=== PATIENT | female | born 1940 | race Caucasian/White ===

== ENCOUNTER 2019-06-11 12:30 | Inpatient (IN) | payer MEDICARE, MEDICAID ==
[~2019-06-11] VITALS: Ht 165.1 cm; Wt 89.1 kg
[~2019-06-11 12:30] MED LIST: ALPR0.5T PO; ASPI-630 PO; BENZ-8 PO; BENZ1LOZ48 MM; BISA5TAB4 PO; BUPR300T3 PO; CALC400T5 PO; CHLO5CAP2 PO; DICL100G18 TP; DULO30CA2 PO; ESOM40CA PO; FLUT1DIS IH; FURO-69 PO; GUAI100L12 PO; HYDR-2769 PO; IPRA3AMP23 IH; LAMO200T3 PO; MAGN296S9 PO; MOME45CR2 TP; NICOTINE PATCH1 EAC3 TD; NYST1POW2 TP; ORPH-16 PO; PEG15DRO2 OP; POLY17PO5 PO; POTA10TA31 PO; PROM25TA10 PO; QUET200T4 PO; QUET300T5 PO; SENN-80 PO; SIMV10TA3 PO
[2019-06-11 13:18] LABS: BASO % 0 % (0-3); EOS # 0.1 x10^3/uL (0.0-0.7); EOS % 1 % (0-3); HEMATOCRIT 34.1 % (36.0-47.0); HEMOGLOBIN 11.1 g/dL (12.0-15.5); LYMPH # 1.6 x10^3/uL (1.0-4.8); LYMPH % 12 % (24-48); MEAN CORPUSCULAR HEMOGLOBIN 30 pg (25-35); MEAN CORPUSCULAR HGB CONC 33 g/dL (31-37); MEAN CORPUSCULAR VOLUME 92 fL (79-100); MONO # 0.7 x10^3/uL (0.0-1.1); MONO % 5 % (0-9); NEUT # 10.7 x10^3uL (1.8-7.7); NEUT % 82 % (31-73); PLATELET COUNT 278 x10^3/uL (140-400); RED BLOOD COUNT 3.69 x10^6/uL (3.50-5.40); WHITE BLOOD COUNT 13.1 x10^3/uL (4.0-11.0)
[2019-06-11 13:30] LABS: ALBUMIN 3.3 g/dL (3.4-5.0); CALCIUM 8.7 mg/dL (8.5-10.1); CREATININE 0.8 mg/dL (0.6-1.0); GFR 69.6; MAGNESIUM 1.7 mg/dL (1.8-2.4); POTASSIUM 3.9 mmol/L (3.5-5.1); TOTAL BILIRUBIN 0.2 mg/dL (0.2-1.0); TOTAL PROTEIN 6.6 g/dL (6.4-8.2)
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
--- NOTE | 2019-06-11 14:47 | EKG ---
[address] [address] Test Date: 2019-06-11 Test Time: 12:53:36 Pat Name: TRACI HURTADO Department: Room: Gender: F Registered Client Associate: ANDREA : 1940 Requested By: LIV DANGELO Order Number: [id number] Reading MD: Teddy Archer MD Measurements Intervals Gravelly Rate: 61 P: 12 ME: 180 QRS: -14 QRSD: 92 T: 41 QT: 434 QTc: 443 Interpretive Statements SINUS RHYTHM Electronically Signed On 06-18-2019 16:32:09 CDT by Teddy Archer MD
[2019-06-11 16:03] LABS: BACTERIA,URINE FEW /HPF (0-FEW); BILIRUBIN,URINE NEG (NEG); CLARITY,URINE HAZY; COLOR,URINE YELLOW; GLUCOSE,URINE NEG (NEG); NITRITE,URINE NEG (NEG); RBC,URINE 0 /HPF (0-2); SQUAMOUS EPITHELIAL CELL,UR FEW /LPF; UROBILINOGEN,URINE 0.2 mg/dL (0.2 mg/dL)
[2019-06-11] MEDS ORDERED: GLYCERIN OP SCH (16:45)
[2019-06-11] MEDS ORDERED: POLYETHYLENE GLYCOL 3350 17 GM PACKET. PO SCH (16:45)
[2019-06-11] MEDS ORDERED: HYPROMELLOSE OP SCH (16:45)
[2019-06-11] MEDS ORDERED: NYSTATIN TP SCH (16:45)
[2019-06-11] MEDS ORDERED: IPRATRPIUM/ALBUTEROL 0.5/2.5MG 3 ML NEBU. IH SCH ×2 (16:45→17:00)
[2019-06-11] MEDS ORDERED: guaiFENesin 300 MG/15 ML LIQUID PO SCH (16:45)
[2019-06-11] MEDS ORDERED: PEG OP SCH (16:45)
[2019-06-11] MEDS ORDERED: CALCIUM CARBONATE PO SCH (16:45)
[2019-06-11] MEDS ORDERED: BENZOCAINE/MENTHOL LOZNGE 18'S BOX. MM SCH (16:45)
[2019-06-11] MEDS ORDERED: SENNOSIDES 8.6 MG TABLET PO SCH (16:45)
[2019-06-11] MEDS ORDERED: LOSA25TA11 PO (17:09)
[2019-06-11] MEDS ORDERED: FLUO20CA16 PO (17:09)
[2019-06-11] MEDS ORDERED: UMEC62.5 IH (17:09)
[2019-06-11] MEDS ORDERED: FAMO-63 PO (17:09)
[2019-06-11] MEDS ORDERED: LORA0.5T PO (17:09)
[2019-06-11] MEDS ORDERED: MIRT15TA3 PO (17:09)
[2019-06-11] MEDS ORDERED: MULT-460 PO (17:09)
[2019-06-11] MEDS ORDERED: ONDA4TAB7 PO (17:09)
[2019-06-11] MEDS ORDERED: MELO7.5T29 PO (17:09)
[2019-06-11] MEDS ORDERED: CALC200T3 PO (17:09)
[2019-06-11] MEDS ORDERED: TRAZ-86 PO (17:09)
[2019-06-11] MEDS ORDERED: METO10TA81 PO (17:09)
[2019-06-11] MEDS ORDERED: MELA3TAB56 PO (17:09)
[2019-06-11] MEDS ORDERED: ACET325T9 PO (17:09)
[2019-06-11] MEDS ORDERED: CALCIUM CARBONATE 500 MG TAB.CHEW PO PRN ×3 (17:15→18:00)
[2019-06-11] MEDS ORDERED: ACETAMINOPHEN 325 MG TABLET PO PRN ×2 (17:15→18:30)
[2019-06-11] MEDS ORDERED: HYDROcodone/APAP 10/325 1 TAB TABLET PO SCH (17:15)
[2019-06-11] MEDS ORDERED: BENZOCAINE/MENTHOL LOZNGE 18'S BOX. MM PRN (17:45)
[2019-06-11] MEDS ORDERED: guaiFENesin 300 MG/15 ML LIQUID PO PRN (17:45)
[2019-06-11] MEDS ORDERED: SENNOSIDES 8.6 MG TABLET PO PRN (17:45)
[2019-06-11] MEDS ORDERED: POLYETHYLENE GLYCOL 3350 17 GM PACKET. PO PRN (17:45)
[2019-06-11] MEDS ORDERED: NON FORMULARY ITEM (Ondansetron Hcl (Zofran) 1 TAB) PO SCH (18:00)
[2019-06-11 18:01] VITALS: BP 128/80
[2019-06-11] MEDS ORDERED: POLYVINYL ALCOHOL 1.4% OPHTH SOLUTION 15ML BOTTLE. OU PRN (18:15)
[2019-06-11] MEDS ORDERED: MAG HYDROX/AL HYDROX/SIMETH 30 ML ORAL.SUSP PO PRN (18:30)
[2019-06-11] MEDS ORDERED: METHYL SALICYLATE/MENTHOL TOPICAL OINTMENT 29GM TUBE. TP PRN (18:30)
[2019-06-11] MEDS ORDERED: MAGNESIUM HYDROXIDE 2,400 MG/30 ML ORAL.SUSP. PO PRN (18:30)
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
[2019-06-11] MEDS: traZODone 100 MG TABLET. PO SCH (20:44)
[2019-06-11] MEDS: MELATONIN 3 MG TABLET PO SCH (20:44)
[2019-06-11] MEDS: FAMOTIDINE 20 MG TABLET PO SCH (20:44)
[2019-06-11] MEDS: SIMVASTATIN 10 MG TABLET PO SCH (20:44)
[2019-06-11] MEDS: ONDANSETRON ODT 4 MG TAB.RAPDIS PO SCH (20:45)
[2019-06-11] MEDS: QUEtiapine 100 MG TABLET. PO SCH (20:45)
[2019-06-11] MEDS: MIRTAZAPINE 15 MG TABLET PO SCH (20:45)
[2019-06-11] MEDS: LORazepam 0.5 MG TABLET PO SCH (20:46)
[2019-06-11] MEDS ORDERED: NON FORMULARY ITEM (Quetiapine Fumarate (Seroquel) 300 MG) PO SCH (21:00)
[2019-06-11] MEDS ORDERED: traZODone 100 MG TABLET. PO SCH (21:00)
[2019-06-11] MEDS ORDERED: LORazepam 0.5 MG TABLET PO SCH (21:00)
[2019-06-11] MEDS ORDERED: FAMOTIDINE 20 MG TABLET PO SCH (21:00)
[2019-06-11] MEDS ORDERED: NON FORMULARY ITEM (Fluticasone/Salmeterol (Advair 100-50 Diskus) 1 EACH) IH SCH ×2 (21:00)
[2019-06-11] MEDS ORDERED: MIRTAZAPINE 15 MG TABLET PO SCH (21:00)
[2019-06-11] MEDS ORDERED: SIMVASTATIN 10 MG TABLET PO SCH (21:00)
[2019-06-11] MEDS ORDERED: NYSTATIN TOPICAL POWDER 15GM BOTTLE. TP PRN (21:00)
[2019-06-11] MEDS ORDERED: NON FORMULARY ITEM (Melatonin 2 TAB) PO SCH (21:00)
[2019-06-11] MEDS: POLYVINYL ALCOHOL/POVIDONE/PF OPHTH SOLUTION DROPERETTE. OU PRN (21:12)
[2019-06-11] MEDS: HYDROcodone/APAP 10/325 1 TAB TABLET PO PRN (21:12)
--- NOTE | 2019-06-11 21:53 | PDOC ---
Exam Note: Danis Note: Please also refer to the separate dictated note~for this date of service dictated separately. Discussed the patient with Nursing staff reviewed the chart.~Reviewed interim history and current functioning. Reviewed vital signs,~Labs/ Radiology~and current medications noted below. Continue current treatment with the changes noted in the dictated addendum note Assessment: Vital Signs/I&O: Vital Signs Date Time Temp Pulse Resp B/P (MAP) Pulse Ox O2 Delivery O2 Flow Rate FiO2 06/11/19 21:12 16 Room Air 06/11/19 18:01 97.8 63 128/80 (96) 95 Labs: Laboratory Tests Test 06/11/19 13:05 06/11/19 14:15 White Blood Count 13.1 x10^3/uL (4.0-11.0) H Red Blood Count 3.69 x10^6/uL (3.50-5.40) Hemoglobin 11.1 g/dL (12.0-15.5) L Hematocrit 34.1 % (36.0-47.0) L Mean Corpuscular Volume 92 fL (79-100) Mean Corpuscular Hemoglobin 30 pg (25-35) Mean Corpuscular Hemoglobin Concent 33 g/dL (31-37) Red Cell Distribution Width 13.0 % (11.5-14.5) Platelet Count 278 x10^3/uL (140-400) Neutrophils (%) (Auto) 82 % (31-73) H Lymphocytes (%) (Auto) 12 % (24-48) L Monocytes (%) (Auto) 5 % (0-9) Eosinophils (%) (Auto) 1 % (0-3) Basophils (%) (Auto) 0 % (0-3) Neutrophils # (Auto) 10.7 x10^3uL (1.8-7.7) H Lymphocytes # (Auto) 1.6 x10^3/uL (1.0-4.8) Monocytes # (Auto) 0.7 x10^3/uL (0.0-1.1) Eosinophils # (Auto) 0.1 x10^3/uL (0.0-0.7) Basophils # (Auto) 0.0 x10^3/uL (0.0-0.2) Sodium Level 128 mmol/L (136-145) L Potassium Level 3.9 mmol/L (3.5-5.1) Chloride Level 97 mmol/L (98-107) L Carbon Dioxide Level 26 mmol/L (21-32) Anion Gap 5 (6-14) L Blood Urea Nitrogen 9 mg/dL (7-20) Creatinine 0.8 mg/dL (0.6-1.0) Estimated GFR (Cockcroft-Gault) 69.6 BUN/Creatinine Ratio 11 (6-20) Glucose Level 110 mg/dL (70-99) H Calcium Level 8.7 mg/dL (8.5-10.1) Magnesium Level 1.7 mg/dL (1.8-2.4) L Total Bilirubin 0.2 mg/dL (0.2-1.0) Aspartate Amino Transferase (AST) 17 U/L (15-37) Alanine Aminotransferase (ALT) 17 U/L (14-59) Alkaline Phosphatase 86 U/L (46-116) Total Protein 6.6 g/dL (6.4-8.2) Albumin 3.3 g/dL (3.4-5.0) L Albumin/Globulin Ratio 1.0 (1.0-1.7) Urine Collection Type Unknown Urine Color Yellow Urine Clarity Hazy Urine pH 6.5 Urine Specific Arco <=1.005 Urine Protein Neg (NEG-TRACE) Urine Glucose (UA) Neg mg/dL (NEG) Urine Ketones (Stick) Neg mg/dL (NEG) Urine Blood Neg (NEG) Urine Nitrite Neg (NEG) Urine Bilirubin Neg (NEG) Urine Urobilinogen Dipstick 0.2 mg/dL (0.2 mg/dL) Urine Leukocyte Esterase Neg (NEG) Urine RBC 0 /HPF (0-2) Urine WBC 1-4 /HPF (0-4) Urine Squamous Epithelial Cells Few /LPF Urine Bacteria Few /HPF (0-FEW) Current Medications: Meds: Current Medications Medications (Trade) Dose Ordered Sig/Gladys Route PRN Reason Start Time Stop Time Status Last Admin Dose Admin Simvastatin (Zocor) 10 mg HS PO 06/11/19 21:00 06/11/19 20:48 Quetiapine Fumarate (SEROquel) 300 mg QHS PO 06/11/19 21:00 06/11/19 20:48 Famotidine (Pepcid) 20 mg BID PO 06/11/19 21:00 06/11/19 20:48 Acetaminophen/ Hydrocodone Bitart (Lortab 10/325) 1 tab PRN Q4HRS PRN PO PAIN 06/11/19 17:45 06/11/19 21:12 Lorazepam (Ativan) 0.25 mg BID PO 06/11/19 21:00 06/11/19 20:48 Mirtazapine (Remeron) 15 mg QHS PO 06/11/19 21:00 06/11/19 20:48 Trazodone HCl (Desyrel) 100 mg QHS PO 06/11/19 21:00 06/11/19 20:48 Melatonin 6 mg QHS PO 06/11/19 21:00 06/11/19 20:48 Ondansetron HCl (Zofran Odt) 4 mg Q6HRS PO 06/11/19 18:15 06/11/19 20:48 Artificial Tears (Refresh Classic) 1 drop PRN TID PRN OU DRY EYE 06/11/19 18:30 06/11/19 21:12 I have reviewed the current psychotropics carefully including drug interactions. Risk benefit ratio favors no change other than as noted in my dictated progress note. Diagnosis: Problems: (1) Borderline personality disorder LAURIE TORRES MD Jun 11, 2019 21:53
--- NOTE | 2019-06-11 22:19 | NUR ---
Pt discontinued treament. She stated it made her dizzy and sick to her stomach. Pt wants to use inhalers like she normally does.
[2019-06-11] MEDS: BUDESONIDE 0.5 MG/2 ML NEBU NEB SCH (23:39)
[2019-06-11] MEDS: IPRATRPIUM/ALBUTEROL 0.5/2.5MG 3 ML NEBU. IH SCH (23:39)
[2019-06-12] MEDS: IPRATRPIUM/ALBUTEROL 0.5/2.5MG 3 ML NEBU. IH SCH ×4 (05:57→20:04)
[2019-06-12 06:00] VITALS: BP 122/76
[2019-06-12] MEDS ORDERED: METOCLOPRAMIDE 10 MG TABLET PO SCH (07:30)
[2019-06-12] MEDS ORDERED: FLUoxetine HCL 20 MG CAPSULE PO SCH (08:00)
[2019-06-12] MEDS: METOCLOPRAMIDE 5 MG TABLET PO SCH ×3 (08:31→17:24)
[2019-06-12] MEDS: FAMOTIDINE 20 MG TABLET PO SCH ×2 (08:31→20:04)
[2019-06-12] MEDS: ONDANSETRON ODT 4 MG TAB.RAPDIS PO SCH ×4 (08:31→17:24)
[2019-06-12] MEDS: FLUoxetine HCL 20 MG CAPSULE PO SCH (08:32)
[2019-06-12] MEDS: FUROSEMIDE 20 MG TABLET PO SCH (08:32)
[2019-06-12] MEDS: LORazepam 0.5 MG TABLET PO SCH ×2 (08:33→20:12)
[2019-06-12] MEDS: LOSARTAN 25 MG TABLET. PO SCH (08:33)
[2019-06-12] MEDS: POTASSIUM CHLORIDE 10 MEQ TABLET.ER. PO SCH (08:34)
[2019-06-12] MEDS: MULTIVITAMIN with MINERAL TABLET. PO SCH (08:34)
[2019-06-12] MEDS: NICOTINE 14MG PATCH. TD SCH (08:34)
[2019-06-12] MEDS: MELOXICAM 7.5 MG TABLET PO SCH (08:34)
[2019-06-12] MEDS ORDERED: MELOXICAM 7.5 MG TABLET PO SCH (09:00)
[2019-06-12] MEDS ORDERED: LOSARTAN 25 MG TABLET. PO SCH (09:00)
[2019-06-12] MEDS ORDERED: POTASSIUM CHLORIDE 10 MEQ TABLET.ER. PO SCH (09:00)
[2019-06-12] MEDS ORDERED: FUROSEMIDE 20 MG TABLET PO SCH (09:00)
[2019-06-12] MEDS ORDERED: NON FORMULARY ITEM (Multivitamin With Minerals (Multiple Vitamin) 1 EACH) PO SCH (09:00)
[2019-06-12] MEDS ORDERED: NON FORMULARY ITEM (Umeclidinium Bromide (Incruse Ellipta) 62.5 MCG) IH SCH ×2 (09:00)
[2019-06-12] MEDS: BUDESONIDE 0.5 MG/2 ML NEBU NEB SCH ×2 (11:26→20:04)
--- NOTE | 2019-06-12 11:39 | NUR ---
Patient was in her room during rounding, took medications, allowed for morning assessment. Patient was sarcastic with during rounding, kept asking him to repeat his name and said that she felt he "rushed in and rushed out." No agitation noted, will continue to monitor.
[2019-06-12 13:33] LABS: THYROID STIM HORMONE (TSH) 0.997 uIU/mL (0.358-3.740)
[2019-06-12] MEDS: HYDROcodone/APAP 10/325 1 TAB TABLET PO PRN (15:00)
--- NOTE | 2019-06-12 15:08 | NUR ---
Patient was headed to group activities when she mentioned being in pain. Patient said that her lower back was "killing her". PRN Lortab given @1500. Patient is still in the dayroom. Will continue to monitor.
[2019-06-12 16:46] VITALS: BP 145/72
--- NOTE | 2019-06-12 19:20 | NUR ---
Patient has been provided with Practical Counseling for tobacco cessation. It included a face to face interaction and the following was discussed: Recognizing danger situations, Developing coping skills,Basic cessation information. Will follow for discharge needs and discharge planning.
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
[2019-06-12] MEDS: SIMVASTATIN 10 MG TABLET PO SCH (20:04)
[2019-06-12] MEDS: MELATONIN 3 MG TABLET PO SCH (20:04)
[2019-06-12] MEDS: MIRTAZAPINE 15 MG TABLET PO SCH (20:05)
[2019-06-12] MEDS: traZODone 100 MG TABLET. PO SCH (20:05)
[2019-06-12] MEDS: QUEtiapine 100 MG TABLET. PO SCH (20:05)
--- NOTE | 2019-06-12 21:58 | PDOC ---
Exam Note: Danis Note: Please also refer to the separate dictated note~for this date of service dictated separately.~Patient seen individually. Discussed the patient with Nursing staff reviewed the chart.~Reviewed interim history and current functioning. Reviewed vital signs,~Labs/ Radiology~and current medications noted below. Continue current treatment with the changes noted in the dictated addendum note Assessment: Vital Signs/I&O: Vital Signs Date Time Temp Pulse Resp B/P (MAP) Pulse Ox O2 Delivery O2 Flow Rate FiO2 06/12/19 20:07 95 Room Air 06/12/19 16:46 98.0 84 20 145/72 (96) I & O 06/11/19 06/11/19 06/12/19 15:00 23:00 07:00 Output Total 2 ml Balance -2 ml Current Medications: Meds: Current Medications Medications (Trade) Dose Ordered Sig/Gladys Route PRN Reason Start Time Stop Time Status Last Admin Dose Admin Furosemide (Lasix) 20 mg DAILY PO 06/12/19 09:00 06/12/19 08:34 Potassium Chloride (Klor-Con) 10 meq DAILY PO 06/12/19 09:00 06/12/19 08:34 Fluoxetine HCl (PROzac) 40 mg DAILYWBKFT PO 06/12/19 08:00 06/12/19 08:34 Losartan Potassium (Cozaar) 25 mg DAILY PO 06/12/19 09:00 06/12/19 08:34 Meloxicam (Mobic) 7.5 mg DAILY PO 06/12/19 09:00 06/12/19 08:34 Metoclopramide HCl (Reglan) 5 mg TIDAC PO 06/12/19 07:30 06/12/19 17:24 Multivitamins/ Calcium (Thera-M Plus) 1 tab DAILY PO 06/12/19 09:00 06/12/19 08:34 Nicotine (Nicoderm Cq 14mg) 1 patch DAILY TD 06/12/19 09:00 06/12/19 08:34 I have reviewed the current psychotropics carefully including drug interactions. Risk benefit ratio favors no change other than as noted in my dictated progress note. Diagnosis: Problems: (1) Borderline personality disorder (2) Bipolar affective, mixed, sev w/ psych (3) Impulse control disorder (4) Anxiety disorder LAURIE TORRES MD Jun 12, 2019 21:58
[2019-06-12 23:11] LABS: THYROXINE 4.7 ug/dL (4.5-12.0)
--- NOTE | 2019-06-12 23:45 | NUR ---
Pt sitting quietly in the day room at shift change. Pt calm, interactive, can be condescending and sarcastic at times and attention seeking. Pt often talks down on others. Pt cooperative with assessment and compliant with medications administered whole in applesauce.
[2019-06-13 00:06] LABS: HEMOGLOBIN A1C 5.4 % (4.8-5.6)
[2019-06-13] MEDS: ACETAMINOPHEN 325 MG TABLET PO PRN (00:27)
[2019-06-13] MEDS: ONDANSETRON ODT 4 MG TAB.RAPDIS PO SCH ×5 (00:27→23:22)
[2019-06-13] MEDS: HYDROcodone/APAP 10/325 1 TAB TABLET PO PRN ×2 (00:40→22:10)
--- NOTE | 2019-06-13 00:41 | NUR ---
PRN Lortab administered at this time for c/o LBP and CAMPBELL, pt rates pain 10/10. Pt also insisted that medications be administered whole in chocolate pudding despite being lactose intolerant.
[2019-06-13] MEDS: ALBUTEROL SULFATE 2.5 MG/3 ML NEBU. NEB PRN (05:05)
[2019-06-13] MEDS: IPRATRPIUM/ALBUTEROL 0.5/2.5MG 3 ML NEBU. IH SCH ×4 (05:06→21:27)
[2019-06-13 05:53] VITALS: BP 129/75
[2019-06-13] MEDS: METOCLOPRAMIDE 5 MG TABLET PO SCH ×3 (08:09→17:05)
[2019-06-13] MEDS: FAMOTIDINE 20 MG TABLET PO SCH ×2 (08:09→20:17)
[2019-06-13] MEDS: POTASSIUM CHLORIDE 10 MEQ TABLET.ER. PO SCH (08:10)
[2019-06-13] MEDS: FUROSEMIDE 20 MG TABLET PO SCH (08:10)
[2019-06-13] MEDS: MELOXICAM 7.5 MG TABLET PO SCH (08:10)
[2019-06-13] MEDS: MULTIVITAMIN with MINERAL TABLET. PO SCH (08:11)
[2019-06-13] MEDS: NICOTINE 14MG PATCH. TD SCH (08:11)
[2019-06-13] MEDS: FLUoxetine HCL 20 MG CAPSULE PO SCH (08:11)
[2019-06-13] MEDS: LOSARTAN 25 MG TABLET. PO SCH (08:11)
[2019-06-13] MEDS: LORazepam 0.5 MG TABLET PO SCH ×2 (08:16→20:19)
[2019-06-13] MEDS: BUDESONIDE 0.5 MG/2 ML NEBU NEB SCH ×2 (10:03→21:30)
[2019-06-13 10:47] LABS: BASO % 0 % (0-3); EOS # 0.1 x10^3/uL (0.0-0.7); EOS % 1 % (0-3); HEMATOCRIT 32.8 % (36.0-47.0); HEMOGLOBIN 10.9 g/dL (12.0-15.5); LYMPH # 1.6 x10^3/uL (1.0-4.8); LYMPH % 19 % (24-48); MEAN CORPUSCULAR HEMOGLOBIN 31 pg (25-35); MEAN CORPUSCULAR HGB CONC 33 g/dL (31-37); MEAN CORPUSCULAR VOLUME 92 fL (79-100); MONO # 0.7 x10^3/uL (0.0-1.1); MONO % 8 % (0-9); NEUT % 72 % (31-73); PLATELET COUNT 263 x10^3/uL (140-400); RED BLOOD COUNT 3.57 x10^6/uL (3.50-5.40); RED CELL DISTRIBUTION WIDTH 12.6 % (11.5-14.5); WHITE BLOOD COUNT 8.4 x10^3/uL (4.0-11.0)
--- NOTE | 2019-06-13 10:48 | NUR ---
Patient was in her room getting ready to lay down during assessment, took medications. Patient was calm, cooperative, thanked staff for their cares. Patient is still resting in bed, no agitation noted. Will continue to monitor.
[2019-06-13 10:53] LABS: ALBUMIN 3.3 g/dL (3.4-5.0); CALCIUM 9.4 mg/dL (8.5-10.1); CREATININE 0.9 mg/dL (0.6-1.0); GFR 60.7; TOTAL BILIRUBIN 0.3 mg/dL (0.2-1.0); TOTAL PROTEIN 6.7 g/dL (6.4-8.2)
[2019-06-13 15:55] VITALS: BP 145/80
[2019-06-13] MEDS: traZODone 100 MG TABLET. PO SCH (20:17)
[2019-06-13] MEDS: MELATONIN 3 MG TABLET PO SCH (20:17)
[2019-06-13] MEDS: QUEtiapine 100 MG TABLET. PO SCH (20:18)
[2019-06-13] MEDS: MIRTAZAPINE 15 MG TABLET PO SCH (20:18)
[2019-06-13] MEDS: SIMVASTATIN 10 MG TABLET PO SCH (20:18)
--- NOTE | 2019-06-13 22:52 | NUR ---
Nursing note: Assumed care of pt in her room. She is rude, sarcastic, and demanding. Nothing anyone does for her is satisfactory. We have explained several times why we do not have call lights here. She c/o a headache and was given PRN Lortab. She is now c/o of a stuffy nose. Will order saline spray. Pt is A&OX4. She had a shower and she cussed and berated staff the whole time.
--- NOTE | 2019-06-13 22:54 | PDOC ---
Exam Note: Danis Note: Please also refer to the separate dictated note~for this date of service dictated separately.~Patient seen individually. Discussed the patient with Nursing staff reviewed the chart.~Reviewed interim history and current functioning. Reviewed vital signs,~Labs/ Radiology~and current medications noted below. Continue current treatment with the changes noted in the dictated addendum note Assessment: Vital Signs/I&O: Vital Signs Date Time Temp Pulse Resp B/P (MAP) Pulse Ox O2 Delivery O2 Flow Rate FiO2 06/13/19 22:11 94 Room Air 06/13/19 15:55 98.3 67 22 145/80 (101) I & O 06/12/19 06/12/19 06/13/19 14:59 22:59 06:59 Intake Total 960 ml 840 ml Balance 960 ml 840 ml Labs: Laboratory Tests Test 06/13/19 10:29 White Blood Count 8.4 x10^3/uL (4.0-11.0) Red Blood Count 3.57 x10^6/uL (3.50-5.40) Hemoglobin 10.9 g/dL (12.0-15.5) L Hematocrit 32.8 % (36.0-47.0) L Mean Corpuscular Volume 92 fL (79-100) Mean Corpuscular Hemoglobin 31 pg (25-35) Mean Corpuscular Hemoglobin Concent 33 g/dL (31-37) Red Cell Distribution Width 12.6 % (11.5-14.5) Platelet Count 263 x10^3/uL (140-400) Neutrophils (%) (Auto) 72 % (31-73) Lymphocytes (%) (Auto) 19 % (24-48) L Monocytes (%) (Auto) 8 % (0-9) Eosinophils (%) (Auto) 1 % (0-3) Basophils (%) (Auto) 0 % (0-3) Neutrophils # (Auto) 6.0 x10^3uL (1.8-7.7) Lymphocytes # (Auto) 1.6 x10^3/uL (1.0-4.8) Monocytes # (Auto) 0.7 x10^3/uL (0.0-1.1) Eosinophils # (Auto) 0.1 x10^3/uL (0.0-0.7) Basophils # (Auto) 0.0 x10^3/uL (0.0-0.2) Sodium Level 136 mmol/L (136-145) Potassium Level 4.0 mmol/L (3.5-5.1) Chloride Level 99 mmol/L (98-107) Carbon Dioxide Level 28 mmol/L (21-32) Anion Gap 9 (6-14) Blood Urea Nitrogen 8 mg/dL (7-20) Creatinine 0.9 mg/dL (0.6-1.0) Estimated GFR (Cockcroft-Gault) 60.7 BUN/Creatinine Ratio 9 (6-20) Glucose Level 132 mg/dL (70-99) H Calcium Level 9.4 mg/dL (8.5-10.1) Total Bilirubin 0.3 mg/dL (0.2-1.0) Aspartate Amino Transferase (AST) 15 U/L (15-37) Alanine Aminotransferase (ALT) 15 U/L (14-59) Alkaline Phosphatase 81 U/L (46-116) Total Protein 6.7 g/dL (6.4-8.2) Albumin 3.3 g/dL (3.4-5.0) L Albumin/Globulin Ratio 1.0 (1.0-1.7) Current Medications: I have reviewed the current psychotropics carefully including drug interactions. Risk benefit ratio favors no change other than as noted in my dictated progress note. Diagnosis: Problems: (1) Borderline personality disorder (2) Anxiety disorder (3) Bipolar affective, mixed, sev w/ psych (4) Impulse control disorder LAURIE TORRES MD Jun 13, 2019 22:54
[2019-06-13] MEDS ORDERED: SODIUM CHL/ALOE VERA NASAL GEL 14.1GM TUBE. NS PRN (23:00)
--- NOTE | 2019-06-13 23:13 | NUR ---
This nurse assisted with pt's shower this evening. During the shower, pt was rude, condescending, sarcastic, and belligerent. Pt arguing with staff, calling staff bitches, stating that staff was "fat, stupid and ugly." Pt demanding to shower herself, but then berating staff because we weren't helping her. Pt attention seeking; as staff was helping pt exit the shower pt exaggeratedly attempted to place herself on the floor. Pt was stopped and proceeded to ambulate steadily up the wright.
[2019-06-13] MEDS ORDERED: SODIUM CHLORIDE 0.65% NASAL SPRAY 45ML BOTTLE. NS PRN (23:45)
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
[2019-06-14] MEDS: ONDANSETRON ODT 4 MG TAB.RAPDIS PO SCH ×4 (05:04→17:50)
[2019-06-14] MEDS: IPRATRPIUM/ALBUTEROL 0.5/2.5MG 3 ML NEBU. IH SCH ×4 (05:35→23:59)
[2019-06-14 06:14] VITALS: BP 152/88
[2019-06-14] MEDS: FLUoxetine HCL 20 MG CAPSULE PO SCH (07:45)
[2019-06-14] MEDS: FUROSEMIDE 20 MG TABLET PO SCH (07:45)
[2019-06-14] MEDS: LOSARTAN 25 MG TABLET. PO SCH (07:45)
[2019-06-14] MEDS: FAMOTIDINE 20 MG TABLET PO SCH ×2 (07:45→20:05)
[2019-06-14] MEDS: MELOXICAM 7.5 MG TABLET PO SCH (07:46)
[2019-06-14] MEDS: MULTIVITAMIN with MINERAL TABLET. PO SCH (07:46)
[2019-06-14] MEDS: LORazepam 0.5 MG TABLET PO SCH ×2 (07:47→20:07)
[2019-06-14] MEDS: METOCLOPRAMIDE 5 MG TABLET PO SCH ×3 (07:47→16:54)
[2019-06-14] MEDS: NICOTINE 14MG PATCH. TD SCH (07:49)
[2019-06-14] MEDS: POTASSIUM CHLORIDE 10 MEQ TABLET.ER. PO SCH (07:50)
[2019-06-14] MEDS: BUDESONIDE 0.5 MG/2 ML NEBU NEB SCH ×2 (10:06→23:59)
[2019-06-14] MEDS: HYDROcodone/APAP 10/325 1 TAB TABLET PO PRN ×2 (12:28→17:07)
--- NOTE | 2019-06-14 13:46 | NUR ---
Pt. has isolated to her room other than meal times. Slept soundly in a.m. with HOB elevated 30 degrees. Provided her a list of scheduled meds I had given her as requested. Requested Lortab at lunch for back, leg pain and headache. Rated at 9 on pain scale. Demanding and rude, instructed in meds and purposes of each.
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
[2019-06-14 15:52] VITALS: BP 149/69
--- NOTE | 2019-06-14 17:34 | PN ---
DATE: 06/13/2019 This note covers elements not covered in my initial note of 06/13. SUBJECTIVE: I met with the patient evening of 06/13 on two separate occasions as the patient wanted me back to ask further questions about her diagnosis treatment. Overall, per nursing staff, the patient slept 4-1/2 hours previous night. The patient remains quite grandiose, labile in her mood. REVIEW OF SYSTEMS: No CV, , pulmonary, eye, ENT system symptoms on review. Ambulates independently with walker. MENTAL STATUS EXAM: Oriented reasonably. Speech is coherent, rapid, loud at times. Abstraction fair, computation impaired, language function intact, attention span short. Mood and affect remain somewhat labile and grandiose. LABORATORY DATA: Reviewed. IMPRESSION: Bipolar 1 disorder, mixed versus manic with psychotic features; anxiety disorder, unspecified; impulse control disorder, unspecified. Rest unchanged. PLAN: Start Depakote ER 500 mg p.o. at bedtime. Check CBC, CMP, valproic acid level, ammonia level in 3 days. Continue rest of the psychotropics for now. Consider changing Seroquel to Risperdal if psychotic symptoms persist despite the above. May reduce the Prozac gradually since this at 40 mg could be worsening her wiley. LAURIE TORRES MD DR: STANLEY/sadie JOB#: [id number] / [id number]
[2019-06-14] MEDS: MELATONIN 3 MG TABLET PO SCH (20:04)
[2019-06-14] MEDS: SIMVASTATIN 10 MG TABLET PO SCH (20:04)
[2019-06-14] MEDS: QUEtiapine 100 MG TABLET. PO SCH (20:04)
[2019-06-14] MEDS: MIRTAZAPINE 15 MG TABLET PO SCH (20:04)
[2019-06-14] MEDS: DIVALPROEX ER 500 MG TAB.ER.24H PO SCH (20:07)
[2019-06-14] MEDS: traZODone 100 MG TABLET. PO SCH (20:08)
--- NOTE | 2019-06-14 21:10 | PDOC ---
Exam Note: Danis Note: Please also refer to the separate dictated note~for this date of service dictated separately.~Patient seen individually. Discussed the patient with Nursing staff reviewed the chart.~Reviewed interim history and current functioning. Reviewed vital signs,~Labs/ Radiology~and current medications noted below. Continue current treatment with the changes noted in the dictated addendum note Assessment: Vital Signs/I&O: Vital Signs Date Time Temp Pulse Resp B/P (MAP) Pulse Ox O2 Delivery O2 Flow Rate FiO2 06/14/19 17:07 16 Room Air 06/14/19 15:52 98.2 62 149/69 (95) 95 I & O 06/13/19 06/13/19 06/14/19 15:00 23:00 07:00 Intake Total 720 ml 240 ml 360 ml Balance 720 ml 240 ml 360 ml Current Medications: Meds: Current Medications Medications (Trade) Dose Ordered Sig/Gladys Route PRN Reason Start Time Stop Time Status Last Admin Dose Admin Trazodone HCl (Desyrel) 150 mg QHS PO 06/14/19 21:00 06/14/19 20:08 Divalproex Sodium (Depakote Er) 500 mg QHS PO 06/14/19 21:00 06/14/19 20:08 I have reviewed the current psychotropics carefully including drug interactions. Risk benefit ratio favors no change other than as noted in my dictated progress note. Diagnosis: Problems: (1) Impulse control disorder (2) Bipolar affective, mixed, sev w/ psych (3) Anxiety disorder (4) Morbid obesity (5) Borderline personality disorder LAURIE TORRES MD Jun 14, 2019 21:10
[2019-06-15] MEDS: ONDANSETRON ODT 4 MG TAB.RAPDIS PO SCH ×4 (00:19→17:10)
--- NOTE | 2019-06-15 02:41 | NUR ---
Patient very demanding about how she wants her medications. She wants them floated in pudding, but not stirred in, on top of the pudding. She then stated she "doesn't drink water with her meds, she drinks juice". Patient seems to be oriented to herself but was ignoring nurse and not answering orientation questions. She instead stared straight ahead, nurse verified with other staff and Dr. Sellers that patient was not deaf. Patient dismissive, rude and was acting superior to staff throughout the night. At 2315 patient came to nurses station stating she was still awake, and accusing this nurse of not giving her the correct HS medications. Nurse verified with patient what medications had been given. Patient then left the area, using her walker and stomped down the hallway to her room. Patient keeps door to room closed but when nurse asked about 15 minute checks later, it was reported that patient was sleeping. Jose L scheduled for midnight held as patient was sleeping at that time and did not appear nauseated.
[2019-06-15] MEDS: IPRATRPIUM/ALBUTEROL 0.5/2.5MG 3 ML NEBU. IH SCH ×4 (05:21→23:37)
[2019-06-15 05:53] VITALS: BP 150/69
[2019-06-15] MEDS: METOCLOPRAMIDE 5 MG TABLET PO SCH ×3 (07:53→17:11)
[2019-06-15] MEDS: FLUoxetine HCL 20 MG CAPSULE PO SCH (07:53)
[2019-06-15] MEDS: FUROSEMIDE 20 MG TABLET PO SCH (07:54)
[2019-06-15] MEDS: MELOXICAM 7.5 MG TABLET PO SCH (07:54)
[2019-06-15] MEDS: POTASSIUM CHLORIDE 10 MEQ TABLET.ER. PO SCH (07:54)
[2019-06-15] MEDS: LOSARTAN 25 MG TABLET. PO SCH (07:54)
[2019-06-15] MEDS: FAMOTIDINE 20 MG TABLET PO SCH ×2 (07:55→21:01)
[2019-06-15] MEDS: NICOTINE 14MG PATCH. TD SCH (07:55)
[2019-06-15] MEDS: MULTIVITAMIN with MINERAL TABLET. PO SCH (07:55)
[2019-06-15] MEDS: ALPRAZolam 0.25 MG TABLET PO SCH ×2 (07:58→20:59)
--- NOTE | 2019-06-15 10:50 | NUR ---
Patient was in the dining room during morning rounding, took medications floated in pudding, allowed for morning assessment. Patient was polite, thanked staff, also used please and thank you. No agitation noted, patient denies pain. Will continue to monitor.
[2019-06-15] MEDS: BUDESONIDE 0.5 MG/2 ML NEBU NEB SCH ×2 (11:33→23:37)
[2019-06-15 16:37] VITALS: BP 181/79
--- NOTE | 2019-06-15 19:29 | PDOC ---
Exam Note: Danis Note: Please also refer to the separate dictated note~for this date of service dictated separately.~Patient seen individually. Discussed the patient with Nursing staff reviewed the chart.~Reviewed interim history and current functioning. Reviewed vital signs,~Labs/ Radiology~and current medications noted below. Continue current treatment with the changes noted in the dictated addendum note Assessment: Vital Signs/I&O: Vital Signs Date Time Temp Pulse Resp B/P (MAP) Pulse Ox O2 Delivery O2 Flow Rate FiO2 06/15/19 16:41 95 Room Air 06/15/19 16:37 98.1 65 16 181/79 (113) I & O 06/14/19 06/14/19 06/15/19 15:00 23:00 07:00 Intake Total 560 ml 240 ml 360 ml Balance 560 ml 240 ml 360 ml Current Medications: Meds: Current Medications Medications (Trade) Dose Ordered Sig/Gladys Route PRN Reason Start Time Stop Time Status Last Admin Dose Admin Trazodone HCl (Desyrel) 150 mg QHS PO 06/14/19 21:00 06/14/19 20:08 Divalproex Sodium (Depakote Er) 500 mg QHS PO 06/14/19 21:00 06/14/19 20:08 Alprazolam (Xanax) 0.25 mg BID PO 06/15/19 09:00 06/15/19 07:59 Ondansetron HCl (Zofran Odt) 4 mg TIDAFTMEAL PO 06/15/19 09:00 06/15/19 17:11 I have reviewed the current psychotropics carefully including drug interactions. Risk benefit ratio favors no change other than as noted in my dictated progress note. Diagnosis: Problems: (1) Impulse control disorder (2) Bipolar affective, mixed, sev w/ psych (3) Anxiety disorder (4) Borderline personality disorder LAURIE TORRES MD Jun 15, 2019 19:29
[2019-06-15] MEDS: DIVALPROEX ER 500 MG TAB.ER.24H PO SCH (20:59)
[2019-06-15] MEDS: MIRTAZAPINE 15 MG TABLET PO SCH (21:00)
[2019-06-15] MEDS: SIMVASTATIN 10 MG TABLET PO SCH (21:00)
[2019-06-15] MEDS: QUEtiapine 100 MG TABLET. PO SCH (21:00)
[2019-06-15] MEDS: traZODone 100 MG TABLET. PO SCH (21:00)
[2019-06-15] MEDS: MELATONIN 3 MG TABLET PO SCH (21:01)
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
[2019-06-15] MEDS: traZODone 150 MG TABLET. PO PRN (23:53)
[2019-06-15] MEDS: HYDROcodone/APAP 10/325 1 TAB TABLET PO PRN (23:54)
[2019-06-16] MEDS: IPRATRPIUM/ALBUTEROL 0.5/2.5MG 3 ML NEBU. IH SCH ×4 (05:54→22:09)
[2019-06-16 05:59] VITALS: BP 134/60
[2019-06-16] MEDS: FLUoxetine HCL 20 MG CAPSULE PO SCH (08:26)
[2019-06-16] MEDS: METOCLOPRAMIDE 5 MG TABLET PO SCH ×3 (08:26→17:18)
[2019-06-16] MEDS: LOSARTAN 25 MG TABLET. PO SCH (08:28)
[2019-06-16] MEDS: FAMOTIDINE 20 MG TABLET PO SCH ×2 (08:29→19:25)
[2019-06-16] MEDS: POTASSIUM CHLORIDE 10 MEQ TABLET.ER. PO SCH (08:29)
[2019-06-16] MEDS: FUROSEMIDE 20 MG TABLET PO SCH (08:29)
[2019-06-16] MEDS: NICOTINE 14MG PATCH. TD SCH (08:29)
[2019-06-16] MEDS: ONDANSETRON ODT 4 MG TAB.RAPDIS PO SCH ×3 (08:29→17:17)
[2019-06-16] MEDS: MULTIVITAMIN with MINERAL TABLET. PO SCH (08:29)
[2019-06-16] MEDS: MELOXICAM 7.5 MG TABLET PO SCH (08:29)
[2019-06-16] MEDS: ALPRAZolam 0.25 MG TABLET PO SCH ×2 (08:30→19:27)
[2019-06-16] MEDS: BUDESONIDE 0.5 MG/2 ML NEBU NEB SCH ×2 (10:20→22:09)
--- NOTE | 2019-06-16 12:24 | NUR ---
Pt is withdrawn to her room most of the day. When offered am medications pt swatted them back at the nurse stating "they put them in pudding." Nurse explained to pt that the pt will speak respectfully to everyone and ask for things she needs not passive aggressive demand things. Nurse placed pts pills in a pudding cup for the pt. The pt then stated "they dump them in a small pill cup. I need a small pill cup" Nurse reminded pt that she has a small pill cup she can use on her tray if needed. Pt was med compliant and compliant with her assessment.
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
--- NOTE | 2019-06-16 15:48 | NUR ---
Pt approached nurses station asking "can I speak to someone?" When the nurse asked what specifically she needed she stated "hold on Im thinking." Nurse informed pt that the reason she (the nurse) was asking was because she wanted to make sure she was directed her to the right person. The pt stated "oh so I have to talk to some aide, some flunkie?" and she began to walk into the dayroom. Nurse informed pt that she may not speak disrespectfully about staff and she will not be joining staff and peers in the dayroom. Pt scoffed at the nurse and stated "I've been in my room all day." nurse informed pt that she is sorry but she may not be disrespectful and when she can speak about people respectfully then she may rejoin staff and peers.
[2019-06-16 16:35] VITALS: BP 147/83
--- NOTE | 2019-06-16 18:55 | PDOC ---
Exam Note: Danis Note: Please also refer to the separate dictated note~for this date of service dictated separately.~Patient seen individually. Discussed the patient with Nursing staff reviewed the chart.~Reviewed interim history and current functioning. Reviewed vital signs,~Labs/ Radiology~and current medications noted below. Continue current treatment with the changes noted in the dictated addendum note Assessment: Vital Signs/I&O: Vital Signs Date Time Temp Pulse Resp B/P (MAP) Pulse Ox O2 Delivery O2 Flow Rate FiO2 06/16/19 16:35 98.3 80 16 147/83 (104) 95 06/16/19 15:24 Room Air I & O 06/15/19 06/15/19 06/16/19 14:59 22:59 06:59 Intake Total 960 ml 360 ml 360 ml Balance 960 ml 360 ml 360 ml Current Medications: I have reviewed the current psychotropics carefully including drug interactions. Risk benefit ratio favors no change other than as noted in my dictated progress note. Diagnosis: Problems: (1) Impulse control disorder (2) Bipolar affective, mixed, sev w/ psych (3) Morbid obesity (4) Anxiety disorder (5) Borderline personality disorder LAURIE TORRES MD Jun 16, 2019 18:55
[2019-06-16] MEDS: HYDROcodone/APAP 10/325 1 TAB TABLET PO PRN (19:24)
[2019-06-16] MEDS: DIVALPROEX ER 500 MG TAB.ER.24H PO SCH (19:24)
[2019-06-16] MEDS: QUEtiapine 100 MG TABLET. PO SCH (19:24)
[2019-06-16] MEDS: MIRTAZAPINE 15 MG TABLET PO SCH (19:24)
[2019-06-16] MEDS: MELATONIN 3 MG TABLET PO SCH (19:25)
[2019-06-16] MEDS: SIMVASTATIN 10 MG TABLET PO SCH (19:25)
[2019-06-16] MEDS: traZODone 100 MG TABLET. PO SCH (19:25)
[2019-06-16] MEDS: POLYVINYL ALCOHOL/POVIDONE/PF OPHTH SOLUTION DROPERETTE. OU PRN (20:57)
[2019-06-16] MEDS: traZODone 150 MG TABLET. PO PRN (21:58)
--- NOTE | 2019-06-17 01:33 | PN ---
DATE: 06/15/2019 PSYCHIATRIC PROGRESS NOTE This late entry, 06/15, covers the elements not covered in my initial note. SUBJECTIVE: I met with the patient on the evening of 06/15. The patient slept 6-1/2 hours previous night. Previous night, she was rude per nursing report, but during the day on 06/15, she has been saying thank you and much more pleasant. REVIEW OF SYSTEMS: As I met with her individually, she complained of pain. She is on Mobic for this and had many questions. Nursing staff will address this. REVIEW OF SYSTEMS: No CV, , pulmonary, eye systems symptoms on review. MENTAL STATUS EXAMINATION: The patient is reasonably oriented. Speech is coherent, less pressured. Abstraction fair, computation impaired, language function intact. Mood and affect less irritable, less labile and less grandiose. LABORATORY DATA: Reviewed. IMPRESSION: Probable bipolar disorder, mixed with psychotic features, personality disorder, unspecified; anxiety disorder, unspecified. PLAN: Continue current psychotropics, Xanax 0.25 b.i.d., Prozac 40 mg a day, Remeron 15 mg at bedtime, Seroquel 300 mg at bedtime, trazodone 150 mg at bedtime may repeat x 1 p.r.n. insomnia, melatonin 6 mg at bedtime, Depakote ER 500 mg at bedtime. Check CBC, CMP, valproic acid level, ammonia level on 06/17 and adjust Depakote further to reach therapeutic level. LAURIE TORRES MD DR: STANLEY/sadie JOB#: [id number] / [id number]
--- NOTE | 2019-06-17 04:15 | PN ---
DATE: 06/14/2019 PSYCHIATRIC PROGRESS NOTE This late entry 06/14/2019 covers elements not covered in my initial note. SUBJECTIVE: I met with the patient evening of 06/14/2019. The patient slept 5 hours previous night. She is alert, oriented, walks around the unit in sunglasses. Nursing staff reports she has been demanding, somewhat grandiose and they used the term "like the [place]." She is verbally sarcastic, rude, condescending. She does complain of chronic pain and this is being addressed per Dr. George. REVIEW OF SYSTEMS: Positive for the pain. No CV, , pulmonary, eye system symptoms on review. MENTAL STATUS EXAM: Reasonably oriented. Speech is coherent, a little pressured at times. Abstraction fair, computation impaired, language function intact. Mood and affect remain somewhat anxious and irritable. The patient was quite insistent that Ativan does not help her anxiety. She did very well on Xanax in the past. IMPRESSION: Unchanged from initial note. PLAN: Change Ativan 0.25 mg b.i.d. to Xanax 0.25 mg b.i.d. Maintain Prozac, Remeron, Seroquel, trazodone, melatonin, and she has been started on Depakote ER 500 mg at bedtime. We will follow labs level. Adjust as clinically indicated. LAURIE TORRES MD DR: STANLEY/sadie JOB#: [id number] / [id number]
[2019-06-17 06:04] VITALS: BP 178/70
[2019-06-17] MEDS: IPRATRPIUM/ALBUTEROL 0.5/2.5MG 3 ML NEBU. IH SCH ×4 (06:04→20:00)
[2019-06-17] MEDS: METOCLOPRAMIDE 5 MG TABLET PO SCH ×3 (08:32→17:23)
[2019-06-17] MEDS: POTASSIUM CHLORIDE 10 MEQ TABLET.ER. PO SCH (08:32)
[2019-06-17] MEDS: LOSARTAN 25 MG TABLET. PO SCH (08:32)
[2019-06-17] MEDS: MULTIVITAMIN with MINERAL TABLET. PO SCH (08:33)
[2019-06-17] MEDS: POLYVINYL ALCOHOL/POVIDONE/PF OPHTH SOLUTION DROPERETTE. OU PRN (08:33)
[2019-06-17] MEDS: ONDANSETRON ODT 4 MG TAB.RAPDIS PO SCH ×3 (08:33→17:23)
[2019-06-17] MEDS: FAMOTIDINE 20 MG TABLET PO SCH ×2 (08:33→20:16)
[2019-06-17] MEDS: FUROSEMIDE 20 MG TABLET PO SCH (08:33)
[2019-06-17] MEDS: ALPRAZolam 0.25 MG TABLET PO SCH ×2 (08:33→20:19)
[2019-06-17] MEDS: NICOTINE 14MG PATCH. TD SCH (08:33)
[2019-06-17] MEDS: MELOXICAM 7.5 MG TABLET PO SCH (08:33)
[2019-06-17] MEDS: BUDESONIDE 0.5 MG/2 ML NEBU NEB SCH ×2 (09:51→20:00)
[2019-06-17 10:46] LABS: BASO # 0.1 x10^3/uL (0.0-0.2); BASO % 1 % (0-3); EOS # 0.3 x10^3/uL (0.0-0.7); EOS % 3 % (0-3); HEMATOCRIT 39.8 % (36.0-47.0); HEMOGLOBIN 13.2 g/dL (12.0-15.5); LYMPH # 3.5 x10^3/uL (1.0-4.8); LYMPH % 36 % (24-48); MEAN CORPUSCULAR HEMOGLOBIN 31 pg (25-35); MEAN CORPUSCULAR HGB CONC 33 g/dL (31-37); MEAN CORPUSCULAR VOLUME 93 fL (79-100); MONO # 0.6 x10^3/uL (0.0-1.1); MONO % 7 % (0-9); NEUT # 5.2 x10^3uL (1.8-7.7); NEUT % 53 % (31-73); PLATELET COUNT 268 x10^3/uL (140-400); RED CELL DISTRIBUTION WIDTH 12.9 % (11.5-14.5); WHITE BLOOD COUNT 9.7 x10^3/uL (4.0-11.0)
[2019-06-17 11:16] LABS: ALBUMIN 3.7 g/dL (3.4-5.0); ALBUMIN/GLOBULIN RATIO 0.9 (1.0-1.7); ALK PHOS 89 U/L (46-116); ALT (SGPT) 15 U/L (14-59); ANION GAP 8 (6-14); AST (SGOT) 18 U/L (15-37); BLOOD UREA NITROGEN 13 mg/dL (7-20); BUN/CREATININE RATIO 13 (6-20); CALCIUM 9.7 mg/dL (8.5-10.1); CARBON DIOXIDE 28 mmol/L (21-32); CHLORIDE 95 mmol/L (98-107); GFR 53.8; GLUCOSE 104 mg/dL (70-99); POTASSIUM 4.3 mmol/L (3.5-5.1); SODIUM 131 mmol/L (136-145); TOTAL BILIRUBIN 0.4 mg/dL (0.2-1.0); TOTAL PROTEIN 7.7 g/dL (6.4-8.2)
[2019-06-17 11:17] LABS: VAL ACID 57 mcg/mL (50-100)
--- NOTE | 2019-06-17 11:34 | NUR ---
Pt is withdrawn, little interaction. No agitation no aggression, no hallucinations, no delusions. She is cooperative with her medications and assessment.
[2019-06-17] MEDS: ACETAMINOPHEN 325 MG TABLET PO PRN (13:44)
[2019-06-17 16:36] VITALS: BP 127/77
[2019-06-17] MEDS: MELATONIN 3 MG TABLET PO SCH (20:15)
[2019-06-17] MEDS: QUEtiapine 100 MG TABLET. PO SCH (20:15)
[2019-06-17] MEDS: MIRTAZAPINE 15 MG TABLET PO SCH (20:16)
[2019-06-17] MEDS: traZODone 100 MG TABLET. PO SCH (20:17)
[2019-06-17] MEDS: DIVALPROEX ER 500 MG TAB.ER.24H PO SCH (20:17)
[2019-06-17] MEDS: SIMVASTATIN 10 MG TABLET PO SCH (20:18)
--- NOTE | 2019-06-17 21:00 | NUR ---
Assumed care of the patient in her room. She was calm, cooperative and compliant with medications and assessments. This quality analyst/technical writer brought her meds floated in applesauce. She scoffed and stated "they always give it to me in pudding". This quality analyst/technical writer told her that she had said she was lactose intolerant. She stated "Yeah, I am, but I don't really care about it". No agitation noted. Denies SI/HI. Denies pain at present time.
--- NOTE | 2019-06-17 22:02 | PDOC ---
Exam Note: Danis Note: Please also refer to the separate dictated note~for this date of service dictated separately.~Patient seen individually. Discussed the patient with Nursing staff reviewed the chart.~Reviewed interim history and current functioning. Reviewed vital signs,~Labs/ Radiology~and current medications noted below. Continue current treatment with the changes noted in the dictated addendum note Assessment: Vital Signs/I&O: Vital Signs Date Time Temp Pulse Resp B/P (MAP) Pulse Ox O2 Delivery O2 Flow Rate FiO2 06/17/19 20:39 96 Room Air 06/17/19 16:36 97.4 76 20 127/77 (94) I & O 06/16/19 06/16/19 06/17/19 15:00 23:00 07:00 Intake Total 720 ml 600 ml 200 ml Balance 720 ml 600 ml 200 ml Labs: Laboratory Tests Test 06/17/19 10:29 White Blood Count 9.7 x10^3/uL (4.0-11.0) Red Blood Count 4.30 x10^6/uL (3.50-5.40) Hemoglobin 13.2 g/dL (12.0-15.5) Hematocrit 39.8 % (36.0-47.0) Mean Corpuscular Volume 93 fL (79-100) Mean Corpuscular Hemoglobin 31 pg (25-35) Mean Corpuscular Hemoglobin Concent 33 g/dL (31-37) Red Cell Distribution Width 12.9 % (11.5-14.5) Platelet Count 268 x10^3/uL (140-400) Neutrophils (%) (Auto) 53 % (31-73) Lymphocytes (%) (Auto) 36 % (24-48) Monocytes (%) (Auto) 7 % (0-9) Eosinophils (%) (Auto) 3 % (0-3) Basophils (%) (Auto) 1 % (0-3) Neutrophils # (Auto) 5.2 x10^3uL (1.8-7.7) Lymphocytes # (Auto) 3.5 x10^3/uL (1.0-4.8) Monocytes # (Auto) 0.6 x10^3/uL (0.0-1.1) Eosinophils # (Auto) 0.3 x10^3/uL (0.0-0.7) Basophils # (Auto) 0.1 x10^3/uL (0.0-0.2) Sodium Level 131 mmol/L (136-145) L Potassium Level 4.3 mmol/L (3.5-5.1) Chloride Level 95 mmol/L (98-107) L Carbon Dioxide Level 28 mmol/L (21-32) Anion Gap 8 (6-14) Blood Urea Nitrogen 13 mg/dL (7-20) Creatinine 1.0 mg/dL (0.6-1.0) Estimated GFR (Cockcroft-Gault) 53.8 BUN/Creatinine Ratio 13 (6-20) Glucose Level 104 mg/dL (70-99) H Calcium Level 9.7 mg/dL (8.5-10.1) Total Bilirubin 0.4 mg/dL (0.2-1.0) Aspartate Amino Transferase (AST) 18 U/L (15-37) Alanine Aminotransferase (ALT) 15 U/L (14-59) Alkaline Phosphatase 89 U/L (46-116) Ammonia 24 mcmol/L (11-34) Total Protein 7.7 g/dL (6.4-8.2) Albumin 3.7 g/dL (3.4-5.0) Albumin/Globulin Ratio 0.9 (1.0-1.7) L Valproic Acid Level 57 mcg/mL (50-100) Valproic Acid Last Dose Date 06/16/2019 Valproic Acid Last Dose Time 2100 Current Medications: I have reviewed the current psychotropics carefully including drug interactions. Risk benefit ratio favors no change other than as noted in my dictated progress note. Diagnosis: Problems: (1) Borderline personality disorder (2) Anxiety disorder (3) Morbid obesity (4) Bipolar affective, mixed, sev w/ psych (5) Impulse control disorder (6) Mild cognitive impairment LAURIE TORRES MD Jun 17, 2019 22:02
[2019-06-17] MEDS: traZODone 150 MG TABLET. PO PRN (23:26)
[2019-06-17] MEDS: HYDROcodone/APAP 10/325 1 TAB TABLET PO PRN (23:27)
--- NOTE | 2019-06-18 00:44 | NUR ---
Patient came to the nurses station and complained of "terrible leg pain 10/10" and also stated that was unable to sleep. PRN Trazadone and Lortab given at 2330. Patient went to sit in the day room briefly and then returned to her room. Sleeping at present time.
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
[2019-06-18] MEDS: IPRATRPIUM/ALBUTEROL 0.5/2.5MG 3 ML NEBU. IH SCH ×4 (04:33→20:22)
[2019-06-18] MEDS: BUDESONIDE 0.5 MG/2 ML NEBU NEB SCH ×2 (04:35→20:22)
[2019-06-18 06:44] VITALS: BP 124/76
[2019-06-18] MEDS: FAMOTIDINE 20 MG TABLET PO SCH ×2 (08:20→19:32)
[2019-06-18] MEDS: ONDANSETRON ODT 4 MG TAB.RAPDIS PO SCH ×2 (08:20→13:14)
[2019-06-18] MEDS: POTASSIUM CHLORIDE 10 MEQ TABLET.ER. PO SCH (08:20)
[2019-06-18] MEDS: LOSARTAN 25 MG TABLET. PO SCH (08:20)
[2019-06-18] MEDS: ALPRAZolam 0.25 MG TABLET PO SCH ×2 (08:20→19:48)
[2019-06-18] MEDS: MULTIVITAMIN with MINERAL TABLET. PO SCH (08:20)
[2019-06-18] MEDS: NICOTINE 14MG PATCH. TD SCH (08:21)
[2019-06-18] MEDS: METOCLOPRAMIDE 5 MG TABLET PO SCH ×2 (08:21→13:14)
[2019-06-18] MEDS: MELOXICAM 7.5 MG TABLET PO SCH (08:21)
--- NOTE | 2019-06-18 10:47 | NUR ---
WEEKLY ACTIVITY THERAPY NOTE Date of Admission: 06/11/2019 Date of AT Assessment: 06/14/2019 Goal aimed: to increase leisure engagement and socialization Initial Goal: Pt. will participate in at least five Activity Therapy groups per week. Weekly progress towards goal: achieved, 5/5 Group participation level: varied Weekly highlights: full group on Saturday afternoon- exercise and leisure alternative Behaviors observed: generally irritable and overall dissatisfied/ angry, rude comments towards to staff, impatient at times. Plan: no change to goal Beneficial adaptations: more engagement in the afternoons
--- NOTE | 2019-06-18 10:50 | NUR ---
WEEKLY NOTE: Pt is very demanding and condescending to staff. Pt makes multiple requests on how things are completed and gets angry when redirected. Pt is combative during cares and averaging roughly 5 hours a night. Pt Prozac was discontinued as pt has some wiley concerns; pt Depakote was increased to 750mg with labs and levels in 3 days. Pt will return to [facility] in the middle to latter of next week.
--- NOTE | 2019-06-18 13:15 | NUR ---
Held patients anti-nausea medications. Patient eating lunch and is not nauseated. Will discuss making them PRN with Dr. George.
[2019-06-18 16:05] VITALS: BP 162/77
[2019-06-18] MEDS ORDERED: METOCLOPRAMIDE 5 MG TABLET PO PRN (16:15)
[2019-06-18] MEDS ORDERED: ONDANSETRON ODT 4 MG TAB.RAPDIS PO PRN (16:15)
--- NOTE | 2019-06-18 16:53 | NUR ---
Patient is rude and demanding. Compliant with medications this am and demanding and rude at the nurses station in the afternoon. She stated she has an infected toe nail and wants it cut. she was advised that we do not offer podiatry, she was angry stated it has been bothering her for "at least a week". This nurse checked with staff on duty and no one had heard about the toe issue. She then demanded to be put back on her Lasix, but her sodium is too low (06/17 NA 131). Than angered her. She also demands that this nurse fix her walker, as the brake is sticking. When advised that we do not offer walker maintenance, she became angry and stated that "well that just makes me a fall risk". Stated we could call her guardian to arrange repairs. She declined. Nurse advised her to not sit on her walker if the brakes aren't working. She then walked away from window.
--- NOTE | 2019-06-18 16:56 | NUR ---
Nursing Note: Pt in the day room at this time.
[2019-06-18] MEDS: QUEtiapine 100 MG TABLET. PO SCH (19:31)
[2019-06-18] MEDS: traZODone 100 MG TABLET. PO SCH (19:31)
[2019-06-18] MEDS: MELATONIN 3 MG TABLET PO SCH (19:32)
[2019-06-18] MEDS: MIRTAZAPINE 15 MG TABLET PO SCH (19:32)
[2019-06-18] MEDS: SIMVASTATIN 10 MG TABLET PO SCH (19:32)
[2019-06-18] MEDS: DIVALPROEX ER 250 MG TAB.ER.24H. PO SCH (19:48)
--- NOTE | 2019-06-18 21:00 | NUR ---
Patient in the day room on assumption of care. Irritable, but compliant with meds and assessments. No agitation, no delusions or hallucinations noted. No complaints of pain or discomfort, denies SI/HI.
--- NOTE | 2019-06-18 21:17 | PDOC ---
Exam Note: Danis Note: Please also refer to the separate dictated note~for this date of service dictated separately.~Patient seen individually. Discussed the patient with Nursing staff reviewed the chart.~Reviewed interim history and current functioning. Reviewed vital signs,~Labs/ Radiology~and current medications noted below. Continue current treatment with the changes noted in the dictated addendum note Assessment: Vital Signs/I&O: Vital Signs Date Time Temp Pulse Resp B/P (MAP) Pulse Ox O2 Delivery O2 Flow Rate FiO2 06/18/19 20:25 96 Room Air 06/18/19 16:05 97.5 62 16 162/77 (105) I & O 06/17/19 06/17/19 06/18/19 14:59 22:59 06:59 Intake Total 360 ml 480 ml 120 ml Balance 360 ml 480 ml 120 ml Current Medications: Meds: Current Medications Medications (Trade) Dose Ordered Sig/Gladys Route PRN Reason Start Time Stop Time Status Last Admin Dose Admin Divalproex Sodium (Depakote Er) 750 mg QHS PO 06/18/19 21:00 06/18/19 19:49 I have reviewed the current psychotropics carefully including drug interactions. Risk benefit ratio favors no change other than as noted in my dictated progress note. Diagnosis: Problems: (1) Mild cognitive impairment (2) Borderline personality disorder (3) Anxiety disorder (4) Bipolar affective, mixed, sev w/ psych (5) Impulse control disorder LAURIE TORRES MD Jun 18, 2019 21:17
[2019-06-19] MEDS: IPRATRPIUM/ALBUTEROL 0.5/2.5MG 3 ML NEBU. IH SCH ×4 (05:01→20:00)
[2019-06-19 06:41] VITALS: BP 121/79
--- NOTE | 2019-06-19 09:30 | NUR ---
Nursing Note: Pt rude and demanding calling staff fat and disgusting. Withdrawn to herself even when she is in the day room. Demands to have her glasses returned to her although they are not prescription.
[2019-06-19] MEDS: FAMOTIDINE 20 MG TABLET PO SCH ×2 (09:50→21:22)
[2019-06-19] MEDS: LOSARTAN 25 MG TABLET. PO SCH (09:51)
[2019-06-19] MEDS: MELOXICAM 7.5 MG TABLET PO SCH (09:51)
[2019-06-19] MEDS: MULTIVITAMIN with MINERAL TABLET. PO SCH (09:51)
[2019-06-19] MEDS: POTASSIUM CHLORIDE 10 MEQ TABLET.ER. PO SCH (09:52)
[2019-06-19] MEDS: NICOTINE 14MG PATCH. TD SCH (09:52)
[2019-06-19] MEDS: ALPRAZolam 0.25 MG TABLET PO SCH ×2 (09:54→21:24)
[2019-06-19] MEDS: BUDESONIDE 0.5 MG/2 ML NEBU NEB SCH ×2 (11:33→20:00)
[2019-06-19] MEDS: ALBUTEROL SULFATE 2.5 MG/3 ML NEBU. NEB PRN (11:33)
[2019-06-19 15:58] VITALS: BP 147/83
[2019-06-19] MEDS: ACETAMINOPHEN 325 MG TABLET PO PRN (16:21)
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
[2019-06-19] MEDS: SIMVASTATIN 10 MG TABLET PO SCH (21:21)
[2019-06-19] MEDS: MIRTAZAPINE 15 MG TABLET PO SCH (21:22)
[2019-06-19] MEDS: QUEtiapine 100 MG TABLET. PO SCH (21:22)
[2019-06-19] MEDS: DIVALPROEX ER 250 MG TAB.ER.24H. PO SCH (21:22)
[2019-06-19] MEDS: MELATONIN 3 MG TABLET PO SCH (21:22)
[2019-06-19] MEDS: traZODone 100 MG TABLET. PO SCH (21:22)
--- NOTE | 2019-06-19 22:10 | PDOC ---
Exam Note: Danis Note: Please also refer to the separate dictated note~for this date of service dictated separately.~Patient seen individually. Discussed the patient with Nursing staff reviewed the chart.~Reviewed interim history and current functioning. Reviewed vital signs,~Labs/ Radiology~and current medications noted below. Continue current treatment with the changes noted in the dictated addendum note Assessment: Vital Signs/I&O: Vital Signs Date Time Temp Pulse Resp B/P (MAP) Pulse Ox O2 Delivery O2 Flow Rate FiO2 06/19/19 20:03 95 Room Air 06/19/19 15:58 97.5 58 20 147/83 (104) I & O 06/18/19 06/18/19 06/19/19 14:59 22:59 06:59 Intake Total 960 ml 480 ml 120 ml Balance 960 ml 480 ml 120 ml Current Medications: I have reviewed the current psychotropics carefully including drug interactions. Risk benefit ratio favors no change other than as noted in my dictated progress note. Diagnosis: Problems: (1) Mild cognitive impairment (2) Borderline personality disorder (3) Anxiety disorder (4) Bipolar affective, mixed, sev w/ psych (5) Impulse control disorder LAURIE TORRES MD Jun 19, 2019 22:10
[2019-06-19] MEDS: traZODone 150 MG TABLET. PO PRN (23:18)
[2019-06-19] MEDS: HYDROcodone/APAP 10/325 1 TAB TABLET PO PRN (23:26)
[2019-06-20] MEDS: BUDESONIDE 0.5 MG/2 ML NEBU NEB SCH ×2 (01:31→20:07)
--- NOTE | 2019-06-20 03:33 | NUR ---
Patient came to nurses station to complain of insomnia. Brought patient PRN Trazadone, at which time patient then complained of leg pain and requested a Lortab. She received both PRNs at 2330. She appears to be sleeping comfortably at present time.
[2019-06-20] MEDS: IPRATRPIUM/ALBUTEROL 0.5/2.5MG 3 ML NEBU. IH SCH ×3 (04:55→20:07)
[2019-06-20 05:50] VITALS: BP 135/58
[2019-06-20] MEDS: POTASSIUM CHLORIDE 10 MEQ TABLET.ER. PO SCH (08:33)
[2019-06-20] MEDS: MELOXICAM 7.5 MG TABLET PO SCH (08:33)
[2019-06-20] MEDS: FAMOTIDINE 20 MG TABLET PO SCH ×2 (08:34→21:09)
[2019-06-20] MEDS: MULTIVITAMIN with MINERAL TABLET. PO SCH (08:34)
[2019-06-20] MEDS: NICOTINE 14MG PATCH. TD SCH (08:34)
[2019-06-20] MEDS: ALPRAZolam 0.25 MG TABLET PO SCH ×2 (08:35→21:09)
[2019-06-20 08:40] VITALS: BP 113/47
[2019-06-20] MEDS: LOSARTAN 25 MG TABLET. PO SCH (09:00)
--- NOTE | 2019-06-20 09:46 | PN ---
DATE: 06/17/2019 PSYCHIATRIC PROGRESS NOTE This late entry 06/17/2019 covers elements not covered in my initial note. SUBJECTIVE: I met with the patient in the evening of 06/17/2019. Overall, the patient remains somewhat anxious, labile at times, irritable, but redirectable. She slept reasonably well. REVIEW OF SYSTEMS: No CV, , pulmonary, eye system symptoms on review. MENTAL STATUS EXAM: Oriented reasonably. Speech is coherent, a little pressured at times. Responses are impulsive. Abstraction fair, computation impaired, and language function intact. Mood and affect remain somewhat anxious and labile. LABORATORY DATA: Reviewed. IMPRESSION: Unchanged from initial note. PLAN: No change from initial note. We are adjusting the Depakote to reach therapeutic levels and she will continue the rest, psychotropics unchanged. LAURIE TORRES MD DR: STANLEY/sadie JOB#: [id number] / [id number]
--- NOTE | 2019-06-20 09:54 | PN ---
DATE: 06/18/2019 PSYCHIATRIC PROGRESS NOTE This late entry 06/18/2019 covers the elements not covered in my initial note. SUBJECTIVE: I met with the patient in the evening of 06/18/2019 and staffed at a treatment team meeting with the entire team in the morning. The patient's guardian is the public health care administrator. Reviewed her living arrangements diagnosis. Per nursing report, she has been "snarky" irritable, demanding at times. Appetite 50-75%, slept for 4-3/4 hours previous evening. We stopped the Prozac since it seemed to be worsening her manic symptoms. She was agitated with showers. REVIEW OF SYSTEMS: No CV, , pulmonary, eye, ENT system symptoms on review. MENTAL STATUS EXAM: Reasonably oriented. Speech is coherent, a little pressured. Abstraction fair, computation impaired, language function intact, attention span short. No suicidal or homicidal ideation. LABORATORY DATA: Valproic acid level 57 on Depakote ER 500 mg at bedtime. IMPRESSION: Unchanged from initial note. PLAN: Increase Depakote ER to 750 mg at bedtime. Check CBC, CMP, valproic acid level in 3 days. Continue Xanax, Remeron, Seroquel, trazodone, melatonin for now. Make further adjustments as clinically indicated. MAN Michael TORRES MD DR: STANLEY/sadie JOB#: [id number] / [id number]
--- NOTE | 2019-06-20 12:13 | NUR ---
Pt is withdrawn, little interaction. No agitation no aggression. Denies hallucinations, no delusions noted. She is cooperative with her medications and assessment.
[2019-06-20 16:08] VITALS: BP 154/74
[2019-06-20] MEDS: traZODone 100 MG TABLET. PO SCH (21:08)
[2019-06-20] MEDS: MELATONIN 3 MG TABLET PO SCH (21:08)
[2019-06-20] MEDS: SIMVASTATIN 10 MG TABLET PO SCH (21:08)
[2019-06-20] MEDS: MIRTAZAPINE 15 MG TABLET PO SCH (21:08)
[2019-06-20] MEDS: QUEtiapine 100 MG TABLET. PO SCH (21:08)
[2019-06-20] MEDS: DIVALPROEX ER 250 MG TAB.ER.24H. PO SCH (21:09)
[2019-06-20] MEDS: HYDROcodone/APAP 10/325 1 TAB TABLET PO PRN (21:15)
--- NOTE | 2019-06-20 22:50 | PDOC ---
Exam Note: Danis Note: Please also refer to the separate dictated note~for this date of service dictated separately.~Patient seen individually. Discussed the patient with Nursing staff reviewed the chart.~Reviewed interim history and current functioning. Reviewed vital signs,~Labs/ Radiology~and current medications noted below. Continue current treatment with the changes noted in the dictated addendum note Assessment: Vital Signs/I&O: Vital Signs Date Time Temp Pulse Resp B/P (MAP) Pulse Ox O2 Delivery O2 Flow Rate FiO2 06/20/19 21:15 18 96 06/20/19 20:13 Room Air 06/20/19 16:08 98.0 59 154/74 (100) I & O 06/19/19 06/19/19 06/20/19 15:00 23:00 07:00 Intake Total 1200 ml 600 ml Balance 1200 ml 600 ml Current Medications: I have reviewed the current psychotropics carefully including drug interactions. Risk benefit ratio favors no change other than as noted in my dictated progress note. Diagnosis: Problems: (1) Mild cognitive impairment (2) Borderline personality disorder (3) Anxiety disorder (4) Bipolar affective, mixed, sev w/ psych (5) Impulse control disorder LAURIE TORRES MD Jun 20, 2019 22:50
--- NOTE | 2019-06-21 00:59 | NUR ---
Nursing Note: Assumed care of pt. this evening, she was sitting in the day room. She has been calm, withdrawn to self, and compliant with taking her HS meds floated in pudding. No aggression or agitation noted. PRN Lortab administered per DEC for knees pain.
[2019-06-21] MEDS: IPRATRPIUM/ALBUTEROL 0.5/2.5MG 3 ML NEBU. IH SCH ×4 (05:01→21:00)
[2019-06-21 05:55] VITALS: BP 123/66
[2019-06-21 07:54] LABS: BASO % 1 % (0-3); EOS # 0.3 x10^3/uL (0.0-0.7); EOS % 4 % (0-3); HEMATOCRIT 34.5 % (36.0-47.0); HEMOGLOBIN 11.4 g/dL (12.0-15.5); LYMPH # 3.1 x10^3/uL (1.0-4.8); LYMPH % 44 % (24-48); MEAN CORPUSCULAR HEMOGLOBIN 31 pg (25-35); MEAN CORPUSCULAR HGB CONC 33 g/dL (31-37); MEAN CORPUSCULAR VOLUME 93 fL (79-100); MONO # 0.6 x10^3/uL (0.0-1.1); MONO % 9 % (0-9); NEUT # 2.9 x10^3uL (1.8-7.7); NEUT % 42 % (31-73); PLATELET COUNT 240 x10^3/uL (140-400); RED BLOOD COUNT 3.73 x10^6/uL (3.50-5.40); RED CELL DISTRIBUTION WIDTH 13.1 % (11.5-14.5); WHITE BLOOD COUNT 6.9 x10^3/uL (4.0-11.0)
[2019-06-21 08:04] LABS: ALBUMIN/GLOBULIN RATIO 0.9 (1.0-1.7); ALK PHOS 72 U/L (46-116); ALT (SGPT) 11 U/L (14-59); ANION GAP 6 (6-14); AST (SGOT) 11 U/L (15-37); BLOOD UREA NITROGEN 12 mg/dL (7-20); BUN/CREATININE RATIO 13 (6-20); CALCIUM 9.1 mg/dL (8.5-10.1); CARBON DIOXIDE 28 mmol/L (21-32); CHLORIDE 100 mmol/L (98-107); CREATININE 0.9 mg/dL (0.6-1.0); GFR 60.7; GLUCOSE 89 mg/dL (70-99); POTASSIUM 3.9 mmol/L (3.5-5.1); SODIUM 134 mmol/L (136-145); TOTAL BILIRUBIN 0.3 mg/dL (0.2-1.0); TOTAL PROTEIN 6.4 g/dL (6.4-8.2); VAL ACID 62 mcg/mL (50-100)
[2019-06-21] MEDS: LOSARTAN 25 MG TABLET. PO SCH (08:32)
[2019-06-21] MEDS: MELOXICAM 7.5 MG TABLET PO SCH ×2 (08:33→19:47)
[2019-06-21] MEDS: FAMOTIDINE 20 MG TABLET PO SCH ×2 (08:33→19:46)
[2019-06-21] MEDS: NICOTINE 14MG PATCH. TD SCH (08:33)
[2019-06-21] MEDS: MULTIVITAMIN with MINERAL TABLET. PO SCH (08:33)
[2019-06-21] MEDS: POTASSIUM CHLORIDE 10 MEQ TABLET.ER. PO SCH (08:33)
[2019-06-21] MEDS: ALPRAZolam 0.25 MG TABLET PO SCH ×2 (08:34→19:46)
[2019-06-21] MEDS: BUDESONIDE 0.5 MG/2 ML NEBU NEB SCH (11:09)
--- NOTE | 2019-06-21 11:26 | NUR ---
Denies hallucinations, no delusions noted. She is cooperative with her medications and assessment. Pt is withdrawn, little interaction. No agitation no aggression.
[2019-06-21 16:12] VITALS: BP 116/51
[2019-06-21] MEDS: SIMVASTATIN 10 MG TABLET PO SCH (19:46)
[2019-06-21] MEDS: DIVALPROEX ER 250 MG TAB.ER.24H. PO SCH (19:46)
[2019-06-21] MEDS: traZODone 100 MG TABLET. PO SCH (19:46)
[2019-06-21] MEDS: MELATONIN 3 MG TABLET PO SCH (19:47)
[2019-06-21] MEDS: QUEtiapine 100 MG TABLET. PO SCH (19:47)
[2019-06-21] MEDS: MIRTAZAPINE 15 MG TABLET PO SCH (19:47)
[2019-06-21] MEDS: POLYVINYL ALCOHOL/POVIDONE/PF OPHTH SOLUTION DROPERETTE. OU PRN (19:48)
[2019-06-21] MEDS: HYDROcodone/APAP 10/325 1 TAB TABLET PO PRN (21:51)
--- NOTE | 2019-06-21 22:32 | PDOC ---
Exam Note: Danis Note: Please also refer to the separate dictated note~for this date of service dictated separately.~Patient seen individually. Discussed the patient with Nursing staff reviewed the chart.~Reviewed interim history and current functioning. Reviewed vital signs,~Labs/ Radiology~and current medications noted below. Continue current treatment with the changes noted in the dictated addendum note Assessment: Vital Signs/I&O: Vital Signs Date Time Temp Pulse Resp B/P (MAP) Pulse Ox O2 Delivery O2 Flow Rate FiO2 06/21/19 21:52 96 06/21/19 21:25 Room Air 06/21/19 16:12 97.3 85 18 116/51 (72) I & O 06/20/19 06/20/19 06/21/19 15:00 23:00 07:00 Intake Total 1080 ml 480 ml 420 ml Balance 1080 ml 480 ml 420 ml Labs: Laboratory Tests Test 06/21/19 07:30 White Blood Count 6.9 x10^3/uL (4.0-11.0) Red Blood Count 3.73 x10^6/uL (3.50-5.40) Hemoglobin 11.4 g/dL (12.0-15.5) L Hematocrit 34.5 % (36.0-47.0) L Mean Corpuscular Volume 93 fL (79-100) Mean Corpuscular Hemoglobin 31 pg (25-35) Mean Corpuscular Hemoglobin Concent 33 g/dL (31-37) Red Cell Distribution Width 13.1 % (11.5-14.5) Platelet Count 240 x10^3/uL (140-400) Neutrophils (%) (Auto) 42 % (31-73) Lymphocytes (%) (Auto) 44 % (24-48) Monocytes (%) (Auto) 9 % (0-9) Eosinophils (%) (Auto) 4 % (0-3) H Basophils (%) (Auto) 1 % (0-3) Neutrophils # (Auto) 2.9 x10^3uL (1.8-7.7) Lymphocytes # (Auto) 3.1 x10^3/uL (1.0-4.8) Monocytes # (Auto) 0.6 x10^3/uL (0.0-1.1) Eosinophils # (Auto) 0.3 x10^3/uL (0.0-0.7) Basophils # (Auto) 0.0 x10^3/uL (0.0-0.2) Sodium Level 134 mmol/L (136-145) L Potassium Level 3.9 mmol/L (3.5-5.1) Chloride Level 100 mmol/L (98-107) Carbon Dioxide Level 28 mmol/L (21-32) Anion Gap 6 (6-14) Blood Urea Nitrogen 12 mg/dL (7-20) Creatinine 0.9 mg/dL (0.6-1.0) Estimated GFR (Cockcroft-Gault) 60.7 BUN/Creatinine Ratio 13 (6-20) Glucose Level 89 mg/dL (70-99) Calcium Level 9.1 mg/dL (8.5-10.1) Total Bilirubin 0.3 mg/dL (0.2-1.0) Aspartate Amino Transferase (AST) 11 U/L (15-37) L Alanine Aminotransferase (ALT) 11 U/L (14-59) L Alkaline Phosphatase 72 U/L (46-116) Total Protein 6.4 g/dL (6.4-8.2) Albumin 3.0 g/dL (3.4-5.0) L Albumin/Globulin Ratio 0.9 (1.0-1.7) L Valproic Acid Level 62 mcg/mL (50-100) Valproic Acid Last Dose Date 06/20/19 Valproic Acid Last Dose Time 2100 Current Medications: I have reviewed the current psychotropics carefully including drug interactions. Risk benefit ratio favors no change other than as noted in my dictated progress note. Diagnosis: Problems: (1) Mild cognitive impairment (2) Borderline personality disorder (3) Anxiety disorder (4) Bipolar affective, mixed, sev w/ psych (5) Impulse control disorder LAURIE TORRES MD Jun 21, 2019 22:32
--- NOTE | 2019-06-21 23:40 | NUR ---
Nursing Note Pt is pleasant and cooperative this pm. Takes PO meds willingly and agreeable to assessment. States that she is sick of being around all of these old people. She hates that fact that they are so confused, and there is no one to talk to that makes any sense. She feels like she is ready to "get out of here". Becomes easily irritated with staff and peers, has a low tolerance and is impatient sometimes. Trazodone PRN was given for insomnia.
[2019-06-21] MEDS: traZODone 150 MG TABLET. PO PRN (23:45)
--- NOTE | 2019-06-22 00:16 | PN ---
DATE: 06/20/2019 PSYCHIATRIC PROGRESS NOTE This late entry, 06/20/2019, covers elements not covered in my initial note. SUBJECTIVE: I met with the patient in the evening of 06/20/2019. The patient slept 4-1/4 hours previous night. She has been somewhat demanding, agitated previous night. She has been grandiose. REVIEW OF SYSTEMS: No CV, , pulmonary, eye, ENT system symptoms on review. MENTAL STATUS EXAM: Oriented reasonably. Speech coherent, abstraction fair, computation impaired, language function intact, attention span short. She minimizes most of her problems, blames staff for it. LABORATORY DATA: Reviewed. IMPRESSION: Bipolar disorder, mixed with psychotic features; anxiety disorder, unspecified; personality disorder, unspecified; impulse control disorder. PLAN: Continue current psychotropics including Xanax 0.25 mg b.i.d., Remeron 15 mg at bedtime, Seroquel 300 mg at bedtime, trazodone 150 mg at bedtime, february repeat x 1 p.r.n. for insomnia, melatonin 6 mg at bedtime, Depakote ER 750 mg at bedtime, level is therapeutic at 57, adjust further as clinically indicated. Repeat CBC, CMP, valproic acid level morning of 06/21/2019. MAN Michael TORRES MD DR: STANLEY/sadie JOB#: [id number] / [id number]
[2019-06-22] MEDS: IPRATRPIUM/ALBUTEROL 0.5/2.5MG 3 ML NEBU. IH SCH ×4 (05:33→23:05)
[2019-06-22] MEDS: BUDESONIDE 0.5 MG/2 ML NEBU NEB SCH ×3 (06:00→23:05)
[2019-06-22 06:03] VITALS: BP 131/83
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
[2019-06-22] MEDS: POTASSIUM CHLORIDE 10 MEQ TABLET.ER. PO SCH (08:42)
[2019-06-22] MEDS: ALPRAZolam 0.25 MG TABLET PO SCH ×2 (08:43→20:00)
[2019-06-22] MEDS: MELOXICAM 7.5 MG TABLET PO SCH (08:43)
[2019-06-22] MEDS: FAMOTIDINE 20 MG TABLET PO SCH ×2 (08:43→20:01)
[2019-06-22] MEDS: MULTIVITAMIN with MINERAL TABLET. PO SCH (08:43)
[2019-06-22] MEDS: NICOTINE 14MG PATCH. TD SCH (08:45)
[2019-06-22] MEDS: LOSARTAN 25 MG TABLET. PO SCH (09:00)
[2019-06-22] MEDS: ALBUTEROL SULFATE 2.5 MG/3 ML NEBU. NEB PRN ×2 (10:25→10:27)
[2019-06-22 10:54] VITALS: BP 126/45
--- NOTE | 2019-06-22 10:56 | NUR ---
Pt is withdrawn, little interaction. No agitation no aggression. Denies hallucinations, no delusions noted. She is cooperative with her medications and assessment.
--- NOTE | 2019-06-22 13:20 | NUR ---
Pt stopped by SW office to discuss her upset about not being able to wear her sunglasses. SW explained that pt glasses are not prescription. If anything were to happen to her sunglasses, they would not be reimbursed or cared for by staff. Whereas, prescription glasses would be. Pt reports having a light sensitivity and wants to have them back; mentioning that she fell (but not on this unit) and that these lights are horrible. SW let pt know that she would discuss it with the rest of the team and get back to her.
[2019-06-22 15:40] VITALS: BP 149/91
[2019-06-22] MEDS: QUEtiapine 100 MG TABLET. PO SCH (20:01)
[2019-06-22] MEDS: SIMVASTATIN 10 MG TABLET PO SCH (20:01)
[2019-06-22] MEDS: traZODone 100 MG TABLET. PO SCH (20:01)
[2019-06-22] MEDS: DIVALPROEX ER 250 MG TAB.ER.24H. PO SCH (20:01)
[2019-06-22] MEDS: MIRTAZAPINE 15 MG TABLET PO SCH (20:01)
[2019-06-22] MEDS: MELATONIN 3 MG TABLET PO SCH (20:01)
[2019-06-22] MEDS: MIRTAZAPINE 7.5 MG TABLET. PO SCH (20:08)
[2019-06-22] MEDS: HYDROcodone/APAP 10/325 1 TAB TABLET PO PRN (20:37)
[2019-06-22] MEDS: traZODone 150 MG TABLET. PO PRN (21:49)
--- NOTE | 2019-06-22 21:52 | PDOC ---
Exam Note: Danis Note: Please also refer to the separate dictated note~for this date of service dictated separately.~Patient seen individually. Discussed the patient with Nursing staff reviewed the chart.~Reviewed interim history and current functioning. Reviewed vital signs,~Labs/ Radiology~and current medications noted below. Continue current treatment with the changes noted in the dictated addendum note Assessment: Vital Signs/I&O: Vital Signs Date Time Temp Pulse Resp B/P (MAP) Pulse Ox O2 Delivery O2 Flow Rate FiO2 06/22/19 20:37 98 06/22/19 20:34 Room Air 06/22/19 15:40 97.4 56 16 149/91 (110) I & O 06/21/19 06/21/19 06/22/19 15:00 23:00 07:00 Intake Total 840 ml 240 ml Balance 840 ml 240 ml Current Medications: Meds: Current Medications Medications (Trade) Dose Ordered Sig/Gladys Route PRN Reason Start Time Stop Time Status Last Admin Dose Admin Mirtazapine (Remeron) 7.5 mg QHS PO 06/22/19 21:00 06/22/19 20:08 I have reviewed the current psychotropics carefully including drug interactions. Risk benefit ratio favors no change other than as noted in my dictated progress note. Diagnosis: Problems: (1) Mild cognitive impairment (2) Borderline personality disorder (3) Anxiety disorder (4) Bipolar affective, mixed, sev w/ psych (5) Impulse control disorder LAURIE TORRES MD Jun 22, 2019 21:52
--- NOTE | 2019-06-22 23:10 | NUR ---
Pt sitting quietly in the day room at shift change. Pt irritable, withdrawn to self, and can be rude and snarky towards staff. Pt cooperative with assessment and compliant with her medications administered whole in applesauce. PRN Lortab administered with HS medications for pain. Pt later comes up to the nurse's station to report "I'm sick to my stomach and the Trazodone isn't working." When this nurse repeated what pt had reported to make sure it was heard correctly, pt responded "That's what I just said!" This nurse told pt that there was no need to speak to me in that manner and that I only wanted to make sure I was hearing her correctly. Pt then stated "Oh, I couldn't hear you through the window". PRN Reglan and repeat Trazodone administered whole in applesauce at 2150. Pt then went into day room to sit for a few minutes before returning to her room.
--- NOTE | 2019-06-23 04:35 | PN ---
DATE: 06/21/2019 PSYCHIATRIC PROGRESS NOTE This late entry of 06/21/2019 covers the elements not covered in my initial note. SUBJECTIVE: I met with the patient the evening of 06/21/2019. The patient slept 6-3/4 hours previous night. She did well previous night and during the day, little grandiose at times, but better. REVIEW OF SYSTEMS: No CV, , pulmonary, eye, ENT system symptoms on review. Reliability fair. MENTAL STATUS EXAM: Oriented reasonably. Speech is coherent, abstraction fair, computation impaired, language function intact. Mood and affect appears less grandiose. She is wanting a list of all her medications and I have discussed with BOB Bradshaw to print this off the computer and give it to her as she has been obsessing about this. LABORATORY DATA: Reviewed. IMPRESSION: Unchanged from initial note. PLAN: No change from initial note. Maintain Xanax, Remeron, Seroquel, trazodone, melatonin, along with Depakote. Valproic acid level therapeutic at 62. LAURIE TORRES MD DR: STANLEY/sadie JOB#: [id number] / [id number]
[2019-06-23] MEDS: IPRATRPIUM/ALBUTEROL 0.5/2.5MG 3 ML NEBU. IH SCH ×4 (05:03→20:31)
[2019-06-23 05:54] VITALS: BP 132/69
[2019-06-23] MEDS: BUDESONIDE 0.5 MG/2 ML NEBU NEB SCH ×2 (08:00→20:30)
[2019-06-23] MEDS: FAMOTIDINE 20 MG TABLET PO SCH ×2 (08:21→19:49)
[2019-06-23] MEDS: LOSARTAN 25 MG TABLET. PO SCH (08:21)
[2019-06-23] MEDS: MELOXICAM 7.5 MG TABLET PO SCH (08:21)
[2019-06-23] MEDS: POTASSIUM CHLORIDE 10 MEQ TABLET.ER. PO SCH (08:21)
[2019-06-23] MEDS: NICOTINE 14MG PATCH. TD SCH (08:22)
[2019-06-23] MEDS: MULTIVITAMIN with MINERAL TABLET. PO SCH (08:22)
[2019-06-23] MEDS: ALPRAZolam 0.25 MG TABLET PO SCH ×2 (08:23→19:50)
--- NOTE | 2019-06-23 10:48 | NUR ---
No agitation no aggression. Denies hallucinations, no delusions noted. Pt is withdrawn, little interaction however she asked for candy because "my mouth is dry." the nurse stated she didn't have candy. The pt was offered a cough drop instead as an alternative the pt turned her nose up and walked away. She is cooperative with her medications and assessment.
[2019-06-23] MEDS: HYDROcodone/APAP 10/325 1 TAB TABLET PO PRN ×2 (14:47→19:49)
[2019-06-23 15:42] VITALS: BP 141/64
[2019-06-23] MEDS: QUEtiapine 100 MG TABLET. PO SCH (19:47)
[2019-06-23] MEDS: BENZOCAINE/MENTHOL LOZNGE 18'S BOX. PO PRN (19:47)
[2019-06-23] MEDS: MELATONIN 3 MG TABLET PO SCH (19:48)
[2019-06-23] MEDS: SIMVASTATIN 10 MG TABLET PO SCH (19:48)
[2019-06-23] MEDS: traZODone 100 MG TABLET. PO SCH (19:48)
[2019-06-23] MEDS: DIVALPROEX ER 250 MG TAB.ER.24H. PO SCH (19:48)
[2019-06-23] MEDS: MIRTAZAPINE 7.5 MG TABLET. PO SCH (19:49)
[2019-06-23] MEDS: MIRTAZAPINE 15 MG TABLET PO SCH (19:49)
--- NOTE | 2019-06-23 21:55 | PDOC ---
Exam Note: Danis Note: Please also refer to the separate dictated note~for this date of service dictated separately.~Patient seen individually. Discussed the patient with Nursing staff reviewed the chart.~Reviewed interim history and current functioning. Reviewed vital signs,~Labs/ Radiology~and current medications noted below. Continue current treatment with the changes noted in the dictated addendum note Assessment: Vital Signs/I&O: Vital Signs Date Time Temp Pulse Resp B/P (MAP) Pulse Ox O2 Delivery O2 Flow Rate FiO2 06/23/19 20:38 95 Room Air 06/23/19 16:26 20 06/23/19 15:42 98.3 69 141/64 (89) I & O 06/22/19 06/22/19 06/23/19 15:00 23:00 07:00 Intake Total 480 ml 960 ml Balance 480 ml 960 ml Current Medications: Meds: Current Medications Medications (Trade) Dose Ordered Sig/Gladys Route PRN Reason Start Time Stop Time Status Last Admin Dose Admin Quetiapine Fumarate (SEROquel) 350 mg QHS PO 06/23/19 21:00 06/23/19 19:50 I have reviewed the current psychotropics carefully including drug interactions. Risk benefit ratio favors no change other than as noted in my dictated progress note. Diagnosis: Problems: (1) Mild cognitive impairment (2) Borderline personality disorder (3) Anxiety disorder (4) Bipolar affective, mixed, sev w/ psych (5) Impulse control disorder LAURIE TORRES MD Jun 23, 2019 21:55
--- NOTE | 2019-06-23 22:57 | NUR ---
Nursing Note Pt requests, pop, eyedrops and lortab with her HS meds. Compliant and cooperative with assessment and meds.
--- NOTE | 2019-06-24 03:43 | PN ---
DATE: 06/22/2019 PSYCHIATRIC PROGRESS NOTE This late entry 06/22/2019 covers elements not covered in my initial note. SUBJECTIVE: I met with the patient at length in the evening of 06/22/2019. The patient slept 3-3/4 hours previous night. Previous night, she was medication seeking, anxious, restless, received Lortab, trazodone, Tylenol. Still did not sleep well at night. REVIEW OF SYSTEMS: No CV, , pulmonary, eye system symptoms on review. MENTAL STATUS EXAM: Reasonably oriented. Speech coherent, abstraction fair, computation impaired, language function intact, attention span short. Mood and affect remain somewhat anxious, labile. No suicidal or homicidal ideation. LABORATORY DATA: Reviewed. IMPRESSION: Bipolar disorder, mixed with psychotic features; personality disorder, unspecified; mild cognitive impairment; anxiety disorder, unspecified. PLAN: Add Remeron 7.5 mg at bedtime for her insomnia. Continue melatonin 6 mg at bedtime; Depakote ER 750 at bedtime, level therapeutic at 62; Xanax 0.25 mg b.i.d.; Seroquel 300 mg at bedtime; trazodone 150 mg at bedtime, may repeat x 1; melatonin 6 mg at bedtime. Rest unchanged for now. LAURIE TORRES MD DR: STANLEY/sadie JOB#: [id number] / [id number]
[2019-06-24] MEDS: IPRATRPIUM/ALBUTEROL 0.5/2.5MG 3 ML NEBU. IH SCH ×3 (05:14→20:00)
[2019-06-24 05:58] VITALS: BP 159/82
[2019-06-24] MEDS: FAMOTIDINE 20 MG TABLET PO SCH ×2 (09:14→21:09)
[2019-06-24] MEDS: MULTIVITAMIN with MINERAL TABLET. PO SCH (09:14)
[2019-06-24] MEDS: POLYVINYL ALCOHOL/POVIDONE/PF OPHTH SOLUTION DROPERETTE. OU PRN (09:14)
[2019-06-24] MEDS: POTASSIUM CHLORIDE 10 MEQ TABLET.ER. PO SCH (09:14)
[2019-06-24] MEDS: ALPRAZolam 0.25 MG TABLET PO SCH ×2 (09:14→21:09)
[2019-06-24] MEDS: MELOXICAM 7.5 MG TABLET PO SCH (09:15)
[2019-06-24] MEDS: NICOTINE 14MG PATCH. TD SCH (09:20)
[2019-06-24] MEDS: LOSARTAN 25 MG TABLET. PO SCH (09:20)
[2019-06-24] MEDS: BENZOCAINE/MENTHOL LOZNGE 18'S BOX. PO PRN (09:39)
[2019-06-24] MEDS: BUDESONIDE 0.5 MG/2 ML NEBU NEB SCH ×2 (10:21→20:00)
--- NOTE | 2019-06-24 11:00 | NUR ---
Nursing Note: Pt less demanding today; however, asked numerous times to speak w/ her social services. Compliant w/ meds taken whole, out in the day room, out on the patio during group but didn't answer questions during group. No incidence of insulting staff that this nurse is aware of.
[2019-06-24] MEDS: ALBUTEROL SULFATE 2.5 MG/3 ML NEBU. NEB PRN (15:31)
[2019-06-24 15:48] VITALS: BP 142/76
--- NOTE | 2019-06-24 16:20 | NUR ---
SW met with pt who questioned why she was still here. If she is supposed to have her medications switched and she is taking them, "why can't I leave". SW explained that she is leaving on Saturday. SW spoke with the SW, Jana at [facility], and would be looking through everything and get back to with a time. Pt reports that she is just done with being here and feels like a prisoner. She feels like the staff are mean and rude to which SW reiterated that this is a tough unit to run for 12 hours a day at 3-4 days at a time. Furthermore, SW stated "if you're being rude to them, they are not going to tolerate that". Pt continued to discuss other things that bothered her and her wish to return back to [facility].
[2019-06-24] MEDS: HYDROcodone/APAP 10/325 1 TAB TABLET PO PRN (19:38)
[2019-06-24] MEDS: SIMVASTATIN 10 MG TABLET PO SCH (21:07)
[2019-06-24] MEDS: QUEtiapine 100 MG TABLET. PO SCH (21:07)
[2019-06-24] MEDS: MIRTAZAPINE 15 MG TABLET PO SCH (21:08)
[2019-06-24] MEDS: MIRTAZAPINE 7.5 MG TABLET. PO SCH (21:08)
[2019-06-24] MEDS: DIVALPROEX ER 250 MG TAB.ER.24H. PO SCH (21:08)
[2019-06-24] MEDS: MELATONIN 3 MG TABLET PO SCH (21:08)
[2019-06-24] MEDS: traZODone 100 MG TABLET. PO SCH (21:10)
--- NOTE | 2019-06-24 21:14 | PDOC ---
Exam Note: Danis Note: Please also refer to the separate dictated note~for this date of service dictated separately.~Patient seen individually. Discussed the patient with Nursing staff reviewed the chart.~Reviewed interim history and current functioning. Reviewed vital signs,~Labs/ Radiology~and current medications noted below. Continue current treatment with the changes noted in the dictated addendum note Assessment: Vital Signs/I&O: Vital Signs Date Time Temp Pulse Resp B/P (MAP) Pulse Ox O2 Delivery O2 Flow Rate FiO2 06/24/19 20:03 96 Room Air 06/24/19 15:48 97.3 63 20 142/76 (98) I & O 06/23/19 06/23/19 06/24/19 14:59 22:59 06:59 Intake Total 960 ml 840 ml Balance 960 ml 840 ml Current Medications: I have reviewed the current psychotropics carefully including drug interactions. Risk benefit ratio favors no change other than as noted in my dictated progress note. Diagnosis: Problems: (1) Mild cognitive impairment (2) Borderline personality disorder (3) Anxiety disorder (4) Bipolar affective, mixed, sev w/ psych (5) Impulse control disorder LAURIE TORRES MD Jun 24, 2019 21:14
[2019-06-24] MEDS: traZODone 150 MG TABLET. PO PRN (22:44)
--- NOTE | 2019-06-25 00:15 | NUR ---
Nursing Note: Assumed care of pt. this evening, she was sitting out in the day room. She has been calm, withdrawn to self, and compliant. She has been compliant with taking her HS meds whole floated in pudding. No agitation or aggression noted at this time.
--- NOTE | 2019-06-25 02:56 | PN ---
DATE: 06/23/2019 PSYCHIATRIC PROGRESS NOTE This late entry, 06/23, covers elements not covered in my initial note. SUBJECTIVE: I met with the patient evening of 06/23. The patient slept 6 hours previous night. The patient continues to have various somatic complaints. Reportedly, Dr. George met with her, explained and answered all her questions about her non-psychotropic medications that she had, but she is still not satisfied. She has vague somatic symptoms. REVIEW OF SYSTEMS: No CV, , pulmonary, eye system symptoms on review. Does want her dark glasses because she states she cannot see well with the sunlight glare. MENTAL STATUS EXAM: Reasonably oriented. Speech is coherent, a little pressured at times. Abstraction fair, computation impaired, language function intact, attention span short. Mood and affect remain somewhat anxious, labile, but improved. LABORATORY DATA: Reviewed. IMPRESSION: Unchanged from initial note. PLAN: Increase bedtime Seroquel from 300 mg to 350 mg. Continue Depakote, Xanax, Remeron, melatonin unchanged for now. MAN Michael TORRES MD DR: STANLEY/sadie JOB#: [id number] / [id number]
[2019-06-25] MEDS: IPRATRPIUM/ALBUTEROL 0.5/2.5MG 3 ML NEBU. IH SCH ×5 (05:00→22:57)
[2019-06-25 05:56] VITALS: BP 151/83
--- NOTE | 2019-06-25 08:00 | NUR ---
GERTRUDE faxed over information to GERTRUDE Bates at [facility], updates on pt behaviors. Pt will plan to return on Saturday as they are not able to pick pt up on Saturday. GERTRUDE will follow up with Jana to make all arrangements and contact the [employer] with those updates.
[2019-06-25] MEDS: MELOXICAM 7.5 MG TABLET PO SCH (09:40)
[2019-06-25] MEDS: MULTIVITAMIN with MINERAL TABLET. PO SCH (09:41)
[2019-06-25] MEDS: FAMOTIDINE 20 MG TABLET PO SCH ×2 (09:41→19:33)
[2019-06-25] MEDS: POTASSIUM CHLORIDE 10 MEQ TABLET.ER. PO SCH (09:41)
[2019-06-25] MEDS: NICOTINE 14MG PATCH. TD SCH (09:45)
[2019-06-25 09:46] VITALS: BP 119/70
[2019-06-25] MEDS: ALPRAZolam 0.25 MG TABLET PO SCH ×2 (09:47→19:35)
[2019-06-25] MEDS: LOSARTAN 25 MG TABLET. PO SCH (09:48)
--- NOTE | 2019-06-25 10:35 | NUR ---
WEEKLY NOTE: Pt continues to be rude at times with staff but redirectable. Pt is medication compliant; she self-reports that she is not sleeping well but is noted to have at least 7 hours per night. Pt feels ready to discharge and reports that she does not understand why she continues to be here. At this time, the facility reports that they cannot pick pt up Saturday and requests a Saturday discharge.
--- NOTE | 2019-06-25 10:49 | NUR ---
WEEKLY ACTIVITY THERAPY NOTE Date of Admission: 06/11/2019 Date of AT Assessment: 06/14/2019 Goal aimed: to increase leisure engagement and socialization Initial Goal: Pt. will participate in at least five Activity Therapy groups per week. Weekly progress towards goal: achieved / Group participation level: varied, mostly minimal to moderate Weekly highlights: achieved goal this week, full participation in group crossword last Behaviors observed: usually late to groups, appears irritated with others Plan: no change to goal Beneficial adaptations: more engagement in the afternoons, positive response to trivia questions
[2019-06-25] MEDS: HYDROcodone/APAP 10/325 1 TAB TABLET PO PRN ×2 (11:08→19:34)
[2019-06-25] MEDS: BUDESONIDE 0.5 MG/2 ML NEBU NEB SCH ×2 (11:33→22:57)
[2019-06-25] MEDS: ACETAMINOPHEN 325 MG TABLET PO PRN (13:33)
[2019-06-25 15:55] VITALS: BP 118/55
--- NOTE | 2019-06-25 18:37 | NUR ---
Nursing Note: Pt calm, compliant w/ meds whole in pudding. Much more interactive w/ nursing staff, actually smiled, and was pleasant.
[2019-06-25] MEDS: MELATONIN 3 MG TABLET PO SCH (19:32)
[2019-06-25] MEDS: traZODone 100 MG TABLET. PO SCH (19:32)
[2019-06-25] MEDS: DIVALPROEX ER 250 MG TAB.ER.24H. PO SCH (19:33)
[2019-06-25] MEDS: QUEtiapine 100 MG TABLET. PO SCH (19:33)
[2019-06-25] MEDS: MIRTAZAPINE 7.5 MG TABLET. PO SCH (19:34)
[2019-06-25] MEDS: MIRTAZAPINE 15 MG TABLET PO SCH (19:34)
[2019-06-25] MEDS: SIMVASTATIN 10 MG TABLET PO SCH (19:34)
--- NOTE | 2019-06-25 22:06 | PDOC ---
Exam Note: Danis Note: Please also refer to the separate dictated note~for this date of service dictated separately.~Patient seen individually. Discussed the patient with Nursing staff reviewed the chart.~Reviewed interim history and current functioning. Reviewed vital signs,~Labs/ Radiology~and current medications noted below. Continue current treatment with the changes noted in the dictated addendum note Assessment: Vital Signs/I&O: Vital Signs Date Time Temp Pulse Resp B/P (MAP) Pulse Ox O2 Delivery O2 Flow Rate FiO2 06/25/19 21:25 96 Room Air 06/25/19 15:55 97.9 53 16 118/55 (76) I & O 06/24/19 06/24/19 06/25/19 15:00 23:00 07:00 Intake Total 480 ml 360 ml 240 ml Balance 480 ml 360 ml 240 ml Current Medications: I have reviewed the current psychotropics carefully including drug interactions. Risk benefit ratio favors no change other than as noted in my dictated progress note. Diagnosis: Problems: (1) Mild cognitive impairment (2) Borderline personality disorder (3) Anxiety disorder (4) Morbid obesity (5) Bipolar affective, mixed, sev w/ psych (6) Impulse control disorder LAURIE TORRES MD Jun 25, 2019 22:06
--- NOTE | 2019-06-25 23:00 | NUR ---
Patient in the day room on assumption of care. She is calm, cooperative and compliant with medications and assessments. PRN Lortab given with PM meds per patient request for generalized pain. Patient also complained of being unable to sleep, requesting a PRN Trazadone, which she received at 2300. No agitation, no hallucinations or delusions noted.
[2019-06-25] MEDS: traZODone 150 MG TABLET. PO PRN (23:01)
[2019-06-26 06:00] VITALS: BP 128/72
[2019-06-26] MEDS: NICOTINE 14MG PATCH. TD SCH (09:35)
[2019-06-26] MEDS: FAMOTIDINE 20 MG TABLET PO SCH ×2 (09:36→19:52)
[2019-06-26] MEDS: MULTIVITAMIN with MINERAL TABLET. PO SCH (09:36)
[2019-06-26] MEDS: ALPRAZolam 0.25 MG TABLET PO SCH ×2 (09:36→19:55)
[2019-06-26] MEDS: MELOXICAM 7.5 MG TABLET PO SCH (09:36)
[2019-06-26] MEDS: POTASSIUM CHLORIDE 10 MEQ TABLET.ER. PO SCH (09:36)
[2019-06-26] MEDS: LOSARTAN 25 MG TABLET. PO SCH (09:36)
[2019-06-26] MEDS: HYDROcodone/APAP 10/325 1 TAB TABLET PO PRN ×3 (09:40→19:55)
[2019-06-26] MEDS: IPRATRPIUM/ALBUTEROL 0.5/2.5MG 3 ML NEBU. IH SCH ×4 (10:46→20:00)
[2019-06-26] MEDS: BUDESONIDE 0.5 MG/2 ML NEBU NEB SCH ×2 (10:46→20:00)
--- NOTE | 2019-06-26 12:55 | NUR ---
GERTRUDE contacted Jana at [facility] to discuss pt request for Dai to pick her up today and GERTRUDE wanted to clarify if that was even a staff member versus potential friend. Jana reports that Dai works there; however, she is on vacation. Jana reports that their armored transport service manager quit and administration has to work around schedules, which is why Saturday at 1300 is the soonest they can pick pt up. GERTRUDE relayed that to pt who was "highly upset" and felt that she "needed something to help her calm down". GERTRUDE passed this on to pt nurse and that pt would be staying in her room.
--- NOTE | 2019-06-26 14:26 | NUR ---
[facility] Social Work Discharge Planning Form Patient Name TRACI HURTADO Admit Date: 06/11/19 DISCHARGE PLAN Discharge Destination: Pt to discharge back to [facility] in [place] Saturday06/29/19 Care Assessment: N/A Level II Assessment: N/A Transportation: Facility to transport to pt; transport scheduled for 1300. Special Instructions/Notes: Please fax discharge orders and the medication list to the fax number listed below. DISCHARGE TO FACILITY Facility: [facility] Address: [address] [place] [address], [id number] Contact Name: Jana Wilder (Customs Agent): Contact Name: Please ask for the nurse caring for pt upon admission: PCP: Pt will continue to see the facility physician.
[2019-06-26 17:00] VITALS: BP 166/71
--- NOTE | 2019-06-26 18:09 | NUR ---
Pt has been withdrawn to room most of day. Did complain of anxiety this afternoon, pt went back to room. Pt came back out a few hours later and asked for something for anxiety, RN gave patient a pain pill. We know have PRN hydroxyzine for agitation. PT polite and compliant with RN today. Did not interact with other patients, has poor appetite.
[2019-06-26] MEDS: MELATONIN 3 MG TABLET PO SCH (19:47)
[2019-06-26] MEDS: QUEtiapine 100 MG TABLET. PO SCH (19:49)
[2019-06-26] MEDS: traZODone 100 MG TABLET. PO SCH (19:50)
[2019-06-26] MEDS: DIVALPROEX ER 250 MG TAB.ER.24H. PO SCH (19:52)
[2019-06-26] MEDS: MIRTAZAPINE 15 MG TABLET PO SCH (19:52)
[2019-06-26] MEDS: MIRTAZAPINE 7.5 MG TABLET. PO SCH (19:53)
[2019-06-26] MEDS: SIMVASTATIN 10 MG TABLET PO SCH (19:53)
[2019-06-26] MEDS: hydrOXYzine HCL 25 MG TABLET PO PRN (19:55)
--- NOTE | 2019-06-26 20:58 | PN ---
DATE: 06/24/2019 PSYCHIATRIC PROGRESS NOTE This late entry, 06/24/2019, covers elements not covered in my initial note. SUBJECTIVE: I met with the patient evening of 06/24/2019. The patient slept 7-1/2 hours previous night. Overall, the patient is doing better. Per nursing report, she is "soft" in her responses, less abrasive, more accepting and thoughtful. However, when I questioned the patient, she states she does not feel as happy as she was when she was on Prozac. Certainly, the Prozac seemed to be causing some hypomanic to manic symptoms and subjectively I can understand the patient's difference and perception since that was stopped and she was placed on Depakote as a mood stabilizer for her bipolar disorder, manic. Nevertheless, some of this should stabilize and she is less abrasive, less irritable, more appropriate thoughtful as noted. REVIEW OF SYSTEMS: No CV, , pulmonary, eye, ENT system symptoms on review. MENTAL STATUS EXAM: Reasonably oriented. Speech is coherent, less pressured. Abstraction fair, computation impaired, language function intact, attention span short. Mood and affect appears more stable. LABORATORY DATA: Reviewed. IMPRESSION: Bipolar disorder, manic with psychotic features, in partial remission. Rest unchanged. PLAN: Continue current psychotropics. Valproic acid level is 62 therapeutic. Continue Seroquel, Xanax, Remeron, trazodone for sleep. Melatonin for sleep and the Depakote as a mood stabilizer. LAURIE TORRES MD DR: STANLEY/sadie JOB#: [id number] / [id number]
--- NOTE | 2019-06-26 21:53 | PDOC ---
Exam Note: Danis Note: Please also refer to the separate dictated note~for this date of service dictated separately.~Patient seen individually. Discussed the patient with Nursing staff reviewed the chart.~Reviewed interim history and current functioning. Reviewed vital signs,~Labs/ Radiology~and current medications noted below. Continue current treatment with the changes noted in the dictated addendum note Assessment: Vital Signs/I&O: Vital Signs Date Time Temp Pulse Resp B/P (MAP) Pulse Ox O2 Delivery O2 Flow Rate FiO2 06/26/19 20:45 94 Room Air 06/26/19 17:00 97.4 61 16 166/71 (102) I & O 06/25/19 06/25/19 06/26/19 15:00 23:00 07:00 Intake Total 960 ml 480 ml 240 ml Balance 960 ml 480 ml 240 ml Current Medications: Meds: Current Medications Medications (Trade) Dose Ordered Sig/Gladys Route PRN Reason Start Time Stop Time Status Last Admin Dose Admin Hydroxyzine HCl (Atarax) 25 mg PRN Q4HRS PRN PO anxiety 06/26/19 17:30 06/26/19 19:55 I have reviewed the current psychotropics carefully including drug interactions. Risk benefit ratio favors no change other than as noted in my dictated progress note. Diagnosis: Problems: (1) Mild cognitive impairment (2) Borderline personality disorder (3) Anxiety disorder (4) Bipolar affective, mixed, sev w/ psych (5) Impulse control disorder LAURIE TORRES MD Jun 26, 2019 21:53
[2019-06-26] MEDS: traZODone 150 MG TABLET. PO PRN (22:39)
[2019-06-26] MEDS: BENZOCAINE/MENTHOL LOZNGE 18'S BOX. PO PRN (22:40)
--- NOTE | 2019-06-26 23:00 | NUR ---
Patient in her room on assumption of care. Irritable, but compliant with medications and assessments. Per patient request, Lortav Addendum: 06/27/19 at 0025 by ASHANTI MUNROE RN RN Per patient request, Lortab for generalized pain and Atarax for anxiety were given with PM medications. She walked down to the [facility] station at 2230 and complained of insomnia, asking for trazadone. Given to her with water. She then complained of dry mouth and asked for a lozenge. Returned to her room at that time and is currently sleeping comfortably.
--- NOTE | 2019-06-27 00:03 | PN ---
DATE: PSYCHIATRIC PROGRESS NOTE This late entry 06/25/2019 covers elements not covered in my initial note. SUBJECTIVE: I met with the patient evening of 06/25/2019 and staffed at a treatment team meeting with the entire team in the morning. Reviewed the patient's history, diagnoses. She is sleeping average 6 hours, appetite 75-100%. REVIEW OF SYSTEMS: Positive for anxiety." I feel like jello inside". No CV, , pulmonary, eye, ENT system symptoms on review. MENTAL STATUS EXAM: Reasonably oriented. Speech is coherent, a little pressured at times, but lesser than before. Abstraction fair, computation impaired, language function intact, attention span short. Mood and affect still somewhat anxious, labile, but much improved. LABORATORY DATA: Reviewed. IMPRESSION: Unchanged from initial note. PLAN: No change from initial note. MAN Michael TORRES MD DR: STANLEY/sadie JOB#: [id number] / [id number]
[2019-06-27 06:00] VITALS: BP 143/81
[2019-06-27] MEDS: IPRATRPIUM/ALBUTEROL 0.5/2.5MG 3 ML NEBU. IH SCH ×4 (06:33→20:40)
[2019-06-27] MEDS: POTASSIUM CHLORIDE 10 MEQ TABLET.ER. PO SCH (08:42)
[2019-06-27] MEDS: LOSARTAN 25 MG TABLET. PO SCH (08:42)
[2019-06-27] MEDS: HYDROcodone/APAP 10/325 1 TAB TABLET PO PRN ×2 (08:42→22:16)
[2019-06-27] MEDS: FAMOTIDINE 20 MG TABLET PO SCH ×2 (08:42→20:00)
[2019-06-27] MEDS: MELOXICAM 7.5 MG TABLET PO SCH (08:43)
[2019-06-27] MEDS: NICOTINE 14MG PATCH. TD SCH (08:43)
[2019-06-27] MEDS: ALPRAZolam 0.25 MG TABLET PO SCH ×2 (08:46→19:57)
[2019-06-27] MEDS: MULTIVITAMIN with MINERAL TABLET. PO SCH (08:46)
[2019-06-27] MEDS: BUDESONIDE 0.5 MG/2 ML NEBU NEB SCH ×2 (11:30→20:40)
[2019-06-27 15:31] VITALS: BP 138/84
--- NOTE | 2019-06-27 15:55 | NUR ---
Arose late for breakfast, ate it in the dayroom. Compliant with medications and assessment. Reported pain in the a.m. and requested and given Lortab. Has had no other requests, interacting with peers in dayroom and dining room. A & O. Awaiting discharge on Saturday.
[2019-06-27] MEDS: MIRTAZAPINE 15 MG TABLET PO SCH (19:57)
[2019-06-27] MEDS: DIVALPROEX ER 250 MG TAB.ER.24H. PO SCH (19:57)
[2019-06-27] MEDS: MIRTAZAPINE 7.5 MG TABLET. PO SCH (19:57)
[2019-06-27] MEDS: traZODone 100 MG TABLET. PO SCH (19:58)
[2019-06-27] MEDS: MELATONIN 3 MG TABLET PO SCH (19:58)
[2019-06-27] MEDS: QUEtiapine 100 MG TABLET. PO SCH (19:59)
[2019-06-27] MEDS: SIMVASTATIN 10 MG TABLET PO SCH (19:59)
--- NOTE | 2019-06-27 20:03 | PDOC ---
Exam Note: Danis Note: Please also refer to the separate dictated note~for this date of service dictated separately.~Patient seen individually. Discussed the patient with Nursing staff reviewed the chart.~Reviewed interim history and current functioning. Reviewed vital signs,~Labs/ Radiology~and current medications noted below. Continue current treatment with the changes noted in the dictated addendum note Assessment: Vital Signs/I&O: Vital Signs Date Time Temp Pulse Resp B/P (MAP) Pulse Ox O2 Delivery O2 Flow Rate FiO2 06/27/19 16:50 95 Room Air 06/27/19 15:31 97.5 89 18 138/84 (102) I & O 06/26/19 06/26/19 06/27/19 15:00 23:00 07:00 Intake Total 960 ml 480 ml 480 ml Balance 960 ml 480 ml 480 ml Current Medications: I have reviewed the current psychotropics carefully including drug interactions. Risk benefit ratio favors no change other than as noted in my dictated progress note. Diagnosis: Problems: (1) Mild cognitive impairment (2) Borderline personality disorder (3) Anxiety disorder (4) Morbid obesity (5) Bipolar affective, mixed, sev w/ psych (6) Impulse control disorder LAURIE TORRES MD Jun 27, 2019 20:02
[2019-06-27] MEDS: hydrOXYzine HCL 25 MG TABLET PO PRN (21:32)
[2019-06-27] MEDS: traZODone 150 MG TABLET. PO PRN (22:16)
--- NOTE | 2019-06-27 23:22 | NUR ---
Pt located in dayroom at start of shift. Pt is very particular, demanding at times and medication seeking. Compliant with whole HS medications administered in chocolate pudding followed by juice. After receiving her HS medications, pt stated she would need more medication to help her with her nerves and for her to sleep. Pt instructed that she needed to wait for the medications to take effect. Compliant with shower. PRN Atarax administered at 0. PRN Lortab and repeat Trazodone administered at 2214. Pt currently sleeping in bed.
[2019-06-28 06:09] VITALS: BP 117/57
[2019-06-28] MEDS: BUDESONIDE 0.5 MG/2 ML NEBU NEB SCH ×2 (06:13→22:04)
[2019-06-28] MEDS: IPRATRPIUM/ALBUTEROL 0.5/2.5MG 3 ML NEBU. IH SCH ×3 (06:13→22:04)
[2019-06-28 08:21] LABS: BASO % 0 % (0-3); EOS # 0.3 x10^3/uL (0.0-0.7); EOS % 5 % (0-3); HEMOGLOBIN 12.7 g/dL (12.0-15.5); LYMPH # 2.5 x10^3/uL (1.0-4.8); LYMPH % 35 % (24-48); MEAN CORPUSCULAR HEMOGLOBIN 30 pg (25-35); MEAN CORPUSCULAR HGB CONC 33 g/dL (31-37); MEAN CORPUSCULAR VOLUME 94 fL (79-100); MONO # 0.6 x10^3/uL (0.0-1.1); MONO % 9 % (0-9); NEUT # 3.6 x10^3uL (1.8-7.7); NEUT % 51 % (31-73); PLATELET COUNT 230 x10^3/uL (140-400); RED BLOOD COUNT 4.17 x10^6/uL (3.50-5.40); RED CELL DISTRIBUTION WIDTH 12.6 % (11.5-14.5)
[2019-06-28 08:34] LABS: ALBUMIN 3.3 g/dL (3.4-5.0); ALBUMIN/GLOBULIN RATIO 0.9 (1.0-1.7); CALCIUM 9.3 mg/dL (8.5-10.1); CREATININE 0.9 mg/dL (0.6-1.0); GFR 60.7; POTASSIUM 4.2 mmol/L (3.5-5.1); TOTAL BILIRUBIN 0.3 mg/dL (0.2-1.0)
[2019-06-28] MEDS: FAMOTIDINE 20 MG TABLET PO SCH ×2 (08:59→20:38)
[2019-06-28] MEDS: MULTIVITAMIN with MINERAL TABLET. PO SCH (09:00)
[2019-06-28] MEDS: MELOXICAM 7.5 MG TABLET PO SCH (09:00)
[2019-06-28] MEDS: LOSARTAN 25 MG TABLET. PO SCH (09:00)
[2019-06-28] MEDS: POTASSIUM CHLORIDE 10 MEQ TABLET.ER. PO SCH (09:01)
[2019-06-28] MEDS: NICOTINE 14MG PATCH. TD SCH (09:01)
[2019-06-28] MEDS: HYDROcodone/APAP 10/325 1 TAB TABLET PO PRN ×2 (09:28→17:41)
[2019-06-28] MEDS: ALPRAZolam 0.25 MG TABLET PO SCH ×2 (09:28→20:38)
[2019-06-28] MEDS: hydrOXYzine HCL 25 MG TABLET PO PRN ×2 (11:21→17:41)
[2019-06-28] MEDS: ACETAMINOPHEN 325 MG TABLET PO PRN (11:21)
--- NOTE | 2019-06-28 14:42 | NUR ---
Wearing night gown all day. Withdrawn to room except for meals and to come to nursing station and request meds. Education provided about Atarax. Irritable and argumentative about Dr. muñoz. Confused about date of when Atarax was started. Demanding attention, "I need pain and anxiety medicine now!" Had been given PRN Lortab and was not yet time for second. Told her of 4 hour intervals. A & O, anticipating discharge tomorrow. Manipulative of staff, but redirectable when much patience used and allow her to vent.
[2019-06-28 16:28] VITALS: BP 122/76
[2019-06-28] MEDS: MIRTAZAPINE 7.5 MG TABLET. PO SCH (20:35)
[2019-06-28] MEDS: traZODone 100 MG TABLET. PO SCH (20:35)
[2019-06-28] MEDS: MIRTAZAPINE 15 MG TABLET PO SCH (20:35)
[2019-06-28] MEDS: MELATONIN 3 MG TABLET PO SCH (20:36)
[2019-06-28] MEDS: SIMVASTATIN 10 MG TABLET PO SCH (20:36)
[2019-06-28] MEDS: QUEtiapine 100 MG TABLET. PO SCH (20:36)
[2019-06-28] MEDS: DIVALPROEX ER 250 MG TAB.ER.24H. PO SCH (20:36)
--- NOTE | 2019-06-28 21:47 | PDOC ---
Exam Note: Danis Note: Please also refer to the separate dictated note~for this date of service dictated separately.~Patient seen individually. Discussed the patient with Nursing staff reviewed the chart.~Reviewed interim history and current functioning. Reviewed vital signs,~Labs/ Radiology~and current medications noted below. Continue current treatment with the changes noted in the dictated addendum note Assessment: Vital Signs/I&O: Vital Signs Date Time Temp Pulse Resp B/P (MAP) Pulse Ox O2 Delivery O2 Flow Rate FiO2 06/28/19 20:34 96 06/28/19 17:41 16 06/28/19 16:28 97.6 58 122/76 (91) Room Air I & O 06/27/19 06/27/19 06/28/19 15:00 23:00 07:00 Intake Total 960 ml 600 ml Balance 960 ml 600 ml Labs: Laboratory Tests Test 06/28/19 08:07 White Blood Count 7.0 x10^3/uL (4.0-11.0) Red Blood Count 4.17 x10^6/uL (3.50-5.40) Hemoglobin 12.7 g/dL (12.0-15.5) Hematocrit 39.0 % (36.0-47.0) Mean Corpuscular Volume 94 fL (79-100) Mean Corpuscular Hemoglobin 30 pg (25-35) Mean Corpuscular Hemoglobin Concent 33 g/dL (31-37) Red Cell Distribution Width 12.6 % (11.5-14.5) Platelet Count 230 x10^3/uL (140-400) Neutrophils (%) (Auto) 51 % (31-73) Lymphocytes (%) (Auto) 35 % (24-48) Monocytes (%) (Auto) 9 % (0-9) Eosinophils (%) (Auto) 5 % (0-3) H Basophils (%) (Auto) 0 % (0-3) Neutrophils # (Auto) 3.6 x10^3uL (1.8-7.7) Lymphocytes # (Auto) 2.5 x10^3/uL (1.0-4.8) Monocytes # (Auto) 0.6 x10^3/uL (0.0-1.1) Eosinophils # (Auto) 0.3 x10^3/uL (0.0-0.7) Basophils # (Auto) 0.0 x10^3/uL (0.0-0.2) Sodium Level 136 mmol/L (136-145) Potassium Level 4.2 mmol/L (3.5-5.1) Chloride Level 99 mmol/L (98-107) Carbon Dioxide Level 30 mmol/L (21-32) Anion Gap 7 (6-14) Blood Urea Nitrogen 12 mg/dL (7-20) Creatinine 0.9 mg/dL (0.6-1.0) Estimated GFR (Cockcroft-Gault) 60.7 BUN/Creatinine Ratio 13 (6-20) Glucose Level 86 mg/dL (70-99) Calcium Level 9.3 mg/dL (8.5-10.1) Total Bilirubin 0.3 mg/dL (0.2-1.0) Aspartate Amino Transferase (AST) 18 U/L (15-37) Alanine Aminotransferase (ALT) 17 U/L (14-59) Alkaline Phosphatase 86 U/L (46-116) Total Protein 7.0 g/dL (6.4-8.2) Albumin 3.3 g/dL (3.4-5.0) L Albumin/Globulin Ratio 0.9 (1.0-1.7) L Current Medications: I have reviewed the current psychotropics carefully including drug interactions. Risk benefit ratio favors no change other than as noted in my dictated progress note. Diagnosis: Problems: (1) Borderline personality disorder (2) Anxiety disorder (3) Bipolar affective, mixed, sev w/ psych (4) Impulse control disorder (5) Mild cognitive impairment LAURIE TORRES MD Jun 28, 2019 21:47
--- NOTE | 2019-06-28 23:55 | NUR ---
Pt sitting calmly in dayroom at start of shift. Pt irritable, stating her day was "horrible." Pt stating that she is looking forward to discharging tomorrow because "any place is better than here." Compliant with whole medications.
--- NOTE | 2019-06-29 00:22 | PN ---
DATE: 06/27/2019 PSYCHIATRIC PROGRESS NOTE This late entry of 06/27/2019 covers the elements not covered in my initial note. SUBJECTIVE: I met with the patient in the evening of 06/27/2019. The patient slept 6-1/4 hours previous night. For the most part, the patient has been doing alright per nursing staff. REVIEW OF SYSTEMS: She remains a little withdrawn, complains of anxiety, but no CV, , pulmonary, eye system symptoms on review, slightly hard of hearing. MENTAL STATUS EXAM: Reasonably oriented. Speech has some latency, coherent. Abstraction fair, computation impaired, language function intact, attention span short. Mood and affect remains a little withdrawn. LABORATORY DATA: Reviewed. IMPRESSION: Unchanged from initial note. PLAN: No change from initial note. MAN Michael TORRES MD DR: STANLEY/sadie JOB#: [id number] / [id number]
[2019-06-29] MEDS ORDERED: ALBU1.25 NEB (01:56)
[2019-06-29] MEDS ORDERED: ALPR0.25 PO (01:57)
[2019-06-29] MEDS ORDERED: DIVA250T PO (01:58)
[2019-06-29] MEDS ORDERED: MAGN2400 PO (02:00)
[2019-06-29] MEDS ORDERED: MAG355OR17 PO (02:00)
[2019-06-29] MEDS ORDERED: METH29OI TP (02:01)
[2019-06-29] MEDS ORDERED: NICO1PAT25 TD (02:03)
[2019-06-29] MEDS ORDERED: SODI30SP NS (02:04)
[2019-06-29] MEDS ORDERED: POLY1DRO3 OP (02:04)
[2019-06-29] MEDS ORDERED: HYDR25TA PO (02:05)
[2019-06-29] MEDS ORDERED: TRAZ150T49 PO (02:06)
[2019-06-29] MEDS: IPRATRPIUM/ALBUTEROL 0.5/2.5MG 3 ML NEBU. IH SCH ×3 (05:30→10:04)
[2019-06-29] MEDS: BUDESONIDE 0.5 MG/2 ML NEBU NEB SCH (06:00)
[2019-06-29 06:17] VITALS: BP 131/80
[2019-06-29 09:18] VITALS: BP 131/80
[2019-06-29] MEDS: MULTIVITAMIN with MINERAL TABLET. PO SCH (09:18)
[2019-06-29] MEDS: POTASSIUM CHLORIDE 10 MEQ TABLET.ER. PO SCH (09:18)
[2019-06-29] MEDS: FAMOTIDINE 20 MG TABLET PO SCH (09:18)
[2019-06-29] MEDS: MELOXICAM 7.5 MG TABLET PO SCH (09:18)
[2019-06-29] MEDS: LOSARTAN 25 MG TABLET. PO SCH (09:18)
[2019-06-29] MEDS: NICOTINE 14MG PATCH. TD SCH (09:19)
[2019-06-29] MEDS: ALPRAZolam 0.25 MG TABLET PO SCH (09:23)
[2019-06-29] MEDS: HYDROcodone/APAP 10/325 1 TAB TABLET PO PRN (09:59)
--- NOTE | 2019-06-29 13:17 | PN ---
DATE: 06/26/2019 PSYCHIATRIC PROGRESS NOTE This late entry 06/26/2019 covers elements not covered in my initial note. SUBJECTIVE: I met with the patient evening of 06/26/2019 in her room at length. The patient slept 7 hours previous night. She has been withdrawn to her room. An hour ago, she went to the day room, wanting anxiety medications, "because I feel like jello inside." We will add hydroxyzine 25 mg q.4 hours p.r.n. anxiety, max 75 mg in 24 hours. REVIEW OF SYSTEMS: No CV, , pulmonary, eye, ENT system symptoms on review. MENTAL STATUS EXAM: Reasonably oriented. Speech has some latency, slightly hard of hearing. Thought processes goal directed. Abstraction fair, computation impaired, language function intact, attention span short. Mood and affect remain somewhat anxious, labile, but less so than before. LABORATORY DATA: Reviewed. IMPRESSION: Unchanged from initial note. PLAN: No change from initial note. LAURIE TORRES MD DR: STANLEY/sadie JOB#: [id number] / [id number]
--- NOTE | 2019-06-29 14:34 | NUR ---
Transition Record was faxed to follow-up provider with the following elements: Reason for admission, procedures, tests, principal diagnosis, pending studies, patient instructions, 06/05 contact information for unit, phone number to obtain pending test results, plan for follow-up care, physician follow-up, advanced directive information, and medication list with dose, duration and instructions. This information was included in the following documents: History and physical, lab results, study results, progress notes, social work planning form, DC instruction form, patient visit summary, and medication reconciliation form. Date & time record faxed: 06/29/2019@0116 Record faxed to: Linda Record discussed with/ report given to: lance Rodriguez
--- NOTE | 2019-06-29 18:38 | PDOC ---
Exam Note: Danis Note: Please also refer to the separate dictated note~for this date of service dictated separately.~Patient seen individually. Discussed the patient with Nursing staff reviewed the chart.~Reviewed interim history and current functioning. Reviewed vital signs,~Labs/ Radiology~and current medications noted below. Continue current treatment with the changes noted in the dictated addendum note Assessment: Vital Signs/I&O: Vital Signs Date Time Temp Pulse Resp B/P (MAP) Pulse Ox O2 Delivery O2 Flow Rate FiO2 06/29/19 10:06 95 Room Air 06/29/19 09:19 60 131/80 06/29/19 06:17 98.2 18 I & O 06/28/19 06/28/19 06/29/19 15:00 23:00 07:00 Intake Total 720 ml 240 ml 120 ml Balance 720 ml 240 ml 120 ml Current Medications: I have reviewed the current psychotropics carefully including drug interactions. Risk benefit ratio favors no change other than as noted in my dictated progress note. Diagnosis: Problems: (1) Bipolar affective, mixed, sev w/ psych (2) Impulse control disorder (3) Anxiety disorder (4) Borderline personality disorder (5) Mild cognitive impairment LAURIE TORRES MD Jun 29, 2019 18:38
--- NOTE | 2019-06-29 23:27 | PN ---
DATE: 06/28/2019 PSYCHIATRIC PROGRESS NOTE This late entry 06/28/2019 covers elements not covered in my initial note. SUBJECTIVE: I met with the patient evening of 06/28/2019. The patient slept 6-1/4 hours previous night. She has been somewhat irritable and nursing staff wonder whether she is trying to sabotage her discharge scheduled for 06/29/2019. She has been snarky at times, medication seeking earlier in the day. REVIEW OF SYSTEMS: No CV, , pulmonary, eye, ENT system symptoms on review. MENTAL STATUS EXAM: Reasonably oriented. Speech is coherent, a little rapid at times, but better than before. Abstraction fair, computation impaired, language function intact, attention span short. Mood and affect still somewhat labile, but much improved to how she was when she was admitted. LABORATORY DATA: Reviewed. IMPRESSION: Unchanged from initial note. PLAN: No change from initial note with transition to [facility] 06/29/2019. LAURIE TORRES MD DR: STANLEY/sadie JOB#: [id number] / [id number]
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
== END 2019-06-29 14:00 | DRG 885 ==
LOC: ER 12:30 → GEROPSY 17:42
PROVIDERS: ADMIT Psychiatry & Neurology Psychiatry; ATTEND Psychiatry & Neurology Psychiatry
DX: F31.64 Bipolar disorder, current episode mixed, severe, with psychotic features (principal); E87.1 Hypo-osmolality and hyponatremia; J96.11 Chronic respiratory failure with hypoxia; F41.9 Anxiety disorder, unspecified; F60.3 Borderline personality disorder; F63.9 Impulse disorder, unspecified; E66.01 Morbid (severe) obesity due to excess calories; E78.5 Hyperlipidemia, unspecified; G31.84 Mild cognitive impairment of uncertain or unknown etiology; G47.00 Insomnia, unspecified; G89.29 Other chronic pain; F17.210 Nicotine dependence, cigarettes, uncomplicated; I11.0 Hypertensive heart disease with heart failure; I50.9 Heart failure, unspecified; J44.9 Chronic obstructive pulmonary disease, unspecified; K21.9 Gastro-esophageal reflux disease without esophagitis; M79.7 Fibromyalgia; Z79.899 Other long term (current) drug therapy; Z88.8 Allergy status to other drugs, medicaments and biological substances; Z71.6 Tobacco abuse counseling; Z87.01 Personal history of pneumonia (recurrent); Z68.32 Body mass index [BMI] 32.0-32.9, adult
CPT/HCPCS: 36415; 80053; 80061; 80164; 81001; 82140; 82306; 83036; 83540; 83550; 83735; 84436; 84443; 84480; 85025; 86592; 93005; 94640; 99406; J7613; J7620; J7626; J8597; Q0162; 99285-25